=== PATIENT | female | born 1940 | race Caucasian/White ===

== ENCOUNTER → 2020-05-27 14:53 | Outpatient (BNVA) | payer MEDICARE, MEDICAID, SELFPAY | PROVIDERS: Family Provider Physician Assistant Medical; PCP Physician Assistant Medical; Visit Provider Surgery | DX: Z11.59 Encounter for screening for other viral diseases (principal) | CPT/HCPCS: 87635 ==

== ENCOUNTER 2020-06-01 09:08 | Day surgery (SDC) | payer MEDICARE, MEDICAID, SELFPAY ==
[2020-05-29 13:45] VITALS: BMI 24.5
[2020-06-01] VITALS (8 sets, daily range): BP systolic 143–158; BP diastolic 67–78; PULSE 65–77; RESP 18–25; TEMP 36.3–36.8; O2SAT 96–100
[2020-06-01 10:05] LABS: Glucose Point of Care 267 mg/dL (70-110)
[2020-06-01] MEDS: sodium chloride 0.9% 1,000 ML 30 ML IV (10:09)
--- NOTE | 2020-06-01 10:11 | W.PM.OPSUD ---
Surgery/Procedure H&P Update DATE OF PROCEDURE: June 01, 2020 DATE H&P PERFORMED: 05/25/20 H&P UPDATE INFORMATION: I have reviewed H&P completed within last 30 days, I have examined patient prior to procedure and No changes to prior documentation PREOP DIAGNOSIS: gerd/ cholelithiasis PLANNED PROCEDURE: Operation Date: 06/01/20 11:20 Proposed Procedures p EGD [id number] K80.20(Not Applicable) - Kris Crowe MD s Laparoscopic possible open Cholecystectomy(Not Applicable) - Kris Crowe MD
--- NOTE | 2020-06-01 10:37 | ANES.PREANE2 ---
Pre-Anesthetic Assessment Pre-Anesthetic Assessment: Height/Weight: Height 1.57 m Weight 60.781 kg Temp Pulse Resp BP Pulse Ox 98.2 F 77 18 150/77 96 06/01/20 09:51 06/01/20 09:51 06/01/20 09:51 06/01/20 09:51 06/01/20 09:51 Preop Diagnosis: gerd/ cholelithiasis Proposed Procedure: Operation Date: 06/01/20 11:20 Proposed Procedures p EGD 22094 [id number] K80.20(Not Applicable) - Kris Crowe MD s Laparoscopic possible open Cholecystectomy(Not Applicable) - Kris Crowe MD Last intake: Intake Last Liquid Date 05/31/20 Last Liquid Time 21:00 Last Solid Date 05/31/20 Last Solid Time 21:00 Social: Social History: No alcohol and No tobacco Exam: Pre-Anes Outpt Exam: alert, oriented x 3, clear to auscultation bilaterally and regular rate & rhythm Airway: Submandibular: WNL Cervical ROM: WNL MP: 1 Dentition: False History/ROS: No significant complaints Pulmonary: Pulmonary: None reported CV/HEM: CV/HEM: Arrythmia : : None reported Hepatic: Hepatic: None reported GI: GI: GERD Metabolic: Metabolic: DM [facility] [place]/skel: [facility]/skel: None reported Neuropsych: Neuropsych: None reported Anesthetic Plan: ASA status: 3 Anesthesia: General Meds/Allergies Current Medications: Current Medications Generic Name Dose Route Start Last Admin Trade Name Freq PRN Reason Stop Dose Admin Sodium Chloride 1,000 mls @ 30 ml s/hr 06/01/20 10:15 06/01/20 10:09 Sodium Chloride 0.9% IV 06/02/20 10:14 30 mls/hr .Q24H SATHISH Administration PFSH Anesthesia PFSH: Medical History (Updated 05/25/20 @ 16:51 by Kris Crowe MD) Atrial fibrillation Depression Diabetes GERD (gastroesophageal reflux disease) Hyperlipidemia Hypertension Hypokalemia Iron deficiency anemia Stress incontinence Surgical History H/O colonoscopy 2019 H/O oophorectomy bilateral 2019 History of cataract surgery Family History Father CAD (coronary artery disease) Cancer lung Mother CAD (coronary artery disease) Diabetes Denies family history of Anesthesia complication Bleeding disorder Social History Smoking and tobacco status: never smoked Alcohol intake: never Lives independently: Yes Marital status: Single Current occupational status: retired History of recent travel: No Data Anesthesia Other Labs: Laboratory Results - last 48 hr 06/01/20 10:02 POC Glucose 267 Cardiac Studies: No Data to Display
--- NOTE | 2020-06-01 10:45 | ECG_ITS ---
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 Measurements Intervals [place] Rate: 62 P: 64 AL: 143 QRS: -6 QRSD: 89 T: 24 QT: 433 QTc: 441 Interpretive Statements SINUS RHYTHM Compared to ECG 12/03/2018 10:55:24 Sinus arrhythmia no longer present Electronically Signed On 06-01-2020 18:54:14 COOK MANAGER by Monae Tomlin M.D. [id number]
--- NOTE | 2020-06-01 13:01 | SUR.PHASEI ---
1259 PATIENT TO PACU FROM OR. DENIES PAIN. 3 INCISIONS TO ABDOMEN, CDI.
--- NOTE | 2020-06-01 13:21 | SUR.PHASEI ---
1317 PATIENT TO OPS. DENIES PAIN. TOLERATING ICE CHIPS.
--- NOTE | 2020-06-01 14:43 | PM.OP ---
Operative Report Date of procedure: June 01, 2020 Pre-op Diagnosis: gerd/ cholelithiasis Post-op Diagnosis: Normal EGD Cholelithiasis Procedure Done: Esophagogastroduodenoscopy without biopsy Laparoscopic cholecystectomy Specimens removed/disposition: Gallbladder Surgeon: Kris Crowe Anesthesia: General Condition: stable Disposition: PACU Procedure: The patient was taken to the operating room and was intubated under general anesthesia. A bite-block was placed and a gastroscope was introduced and advanced up to the second portion of the duodenum and slowly withdrawn. There was no abnormalities in the first and second portion of the duodenum.. The pylorus, antrum, fundus and body of the stomach was normal. There is no hiatal hernia seen on retroflexion. Z-line at 40 cm. There were no other distal esophageal changes. The rest of the esophagus was normal. After the antibiotic had been administered, the abdomen was prepped and draped in a sterile manner. Using a #15 blade, a 1 centimeter infraumbilical curvilinear incision was made and using an open Christina technique the peritoneal cavity was entered. A 10 millimeter port was placed and 15 millimeters of pneumoperitoneum was created. A 10 millimeter, 30 degrees scope was then introduced. Three 5 millimeter ports were placed in the epigastric, midclavicular and the anterior axillary line two fingerbreadths below the costal margin on the right side under the direct visualization. Ratcheted forceps were introduced into the lateral most port and was used to retract the fundus of the gallbladder cephalad and using forceps the infundibulum of the gallbladder was retracted laterally. Using L-hook cautery the peritoneum overlying the Calot's triangle was opened medially and laterally until the cystic duct and the cystic artery were skeletonized. Dissection was carried along the body of the gallbladder and after ensuring critical view of safety, 4 clips applied on the cystic duct and 3 clips applied on the cystic artery and cut leaving, 3 clips on the remaining portion of the duct and 2 clips on the remaining portion of the artery. There was a tear in the fundus of the gallbladder where it was retracted with spillage of bile which was irrigated and suctioned out. There was no spillage of stones. The rest of the gallbladder was dissected off the liver using L-hook cautery. There was no bleeding or bile leaking noted from the gallbladder fossa and the clips appeared to be in place. An EndoCatch bag was introduced to remove the gallbladder. All the ports were removed under direct visualization and there was no bleeding noted from the port sites. The fascia of the umbilicus was closed using [id number] 0 Vicryl sutures and the subcutaneous tissue was approximated using 3-0 Vicryl sutures. The skin at all four ports were closed using 4-0 Monocryl and surgical glue. A total of 10 millimeters of 0.5% Marcaine was infiltrated around the port sites. The patient was stable throughout the procedure.
--- NOTE | 2020-06-01 15:09 | ANE.PACU2 ---
Inpatient post-anesthesia follow up: Airway intact: Yes Vital signs: Temperature 98.1 F Pulse Rate 65 Respiratory Rate 18 Blood Pressure 150/70 Pulse Oximetry 97 Oxygen Delivery Me thod Room Air Oxygen Flow Rate 8 Fraction of Inspir ed Oxygen Hydration adequate: Yes Nausea and vomiting: No Pain level: 3 Mental status: Baseline
== END 2020-06-01 13:45 | disposition home or self-care (01) ==
PROVIDERS: PCP Physician Assistant Medical; Visit Provider Surgery
PROC: 0FT44ZZ Resection of Gallbladder, Percutaneous Endoscopic Approach (ICD-10-PCS; CPT 47562; principal; 2020-06-01 11:20)
PROC: 0DJ08ZZ Inspection of Upper Intestinal Tract, Via Natural or Artificial Opening Endoscopic (ICD-10-PCS; CPT 43235; 2020-06-01 11:20)
DX: K80.10 Calculus of gallbladder with chronic cholecystitis without obstruction (principal); K21.9 Gastro-esophageal reflux disease without esophagitis; E11.9 Type 2 diabetes mellitus without complications; E78.5 Hyperlipidemia, unspecified; I10 Essential (primary) hypertension; I48.91 Unspecified atrial fibrillation
CPT/HCPCS: 43235; 47562; 12345; 36416; 82962; 88304; 93005; J0690; J2405; J2704; J2710; J3010; J3490; J7030

== ENCOUNTER → 2022-05-17 16:16 | Outpatient (BNVA) | payer MEDICARE, MEDICAID, SELFPAY | PROVIDERS: Absent Provider Registered Nurse; PCP Family Medicine; Visit Provider Internal Medicine Cardiovascular Disease | DX: R53.1 Weakness (principal); R06.02 Shortness of breath; Z79.01 Long term (current) use of anticoagulants; N18.9 Chronic kidney disease, unspecified; I48.20 Chronic atrial fibrillation, unspecified; I10 Essential (primary) hypertension | CPT/HCPCS: 80053; 83880; 84443; 85025; 85610; 99214; 99215 ==

== ENCOUNTER → 2022-05-27 08:19 | Outpatient (BNVA) | payer MEDICARE, MEDICAID, SELFPAY | PROVIDERS: PCP Family Medicine; Visit Provider Internal Medicine Cardiovascular Disease | DX: I10 Essential (primary) hypertension (principal); I48.20 Chronic atrial fibrillation, unspecified; R06.02 Shortness of breath; R53.83 Other fatigue | CPT/HCPCS: 80048; 83880 ==

== ENCOUNTER 2022-06-15 10:56 | Outpatient (CLI) | payer MEDICARE, MEDICAID, SELFPAY ==
--- NOTE | 2022-06-15 11:00 | USCV_ITS ---
Monalisa Moore Age: 82 Gender: F : 1940 Exam Date: 06/15/2022 11:49 Ordering Phys: Carlos Schuster MD ([email or web address]) Technologist: Exam Location: [facility] [place] Indication: chest pain BP: 130 / 72 HR: 49 Rhythm: Sinus Technical Quality: Adequate MEASUREMENTS (Male / Female) Normal Values 2D ECHO LV Diastolic Diameter PLAX 4.2 cm 4.2 - 5.9 / 3.9 - 5.3 cm LV Systolic Diameter PLAX 3.1 cm IVS Diastolic Thickness 1.0 cm 0.6 - 1.0 / 0.6 - 0.9 cm IVS Systolic Thickness 1.3 cm LVPW Diastolic Thickness 1.2 cm 0.6 - 1.0 / 0.6 - 0.9 cm LVPW Systolic Thickness 1.3 cm LVOT Diameter 2.0 cm LV Ejection Fraction 2D Teich 50.3 % LV Ejection Fraction MOD 2C 72.1 % LV Ejection Fraction 2C AL 72.2 % LA Diameter 3.3 cm Aorta at Sinotubular Diameter 2.2 cm IVC Diameter 1.6 cm M-MODE Aortic Annulus Diameter 2.5 cm LA Ao Ratio MM 1.4 MV E Point Septal Separation 1.0 cm DOPPLER AV Peak Velocity 123.0 cm/s LVOT Peak Velocity 101.0 cm/s AV Area Cont Eq vti 2.7 cm squared AV Area Cont Eq pk 2.7 cm squared MV Area PHT 5.0 cm squared Mitral E to A Ratio 3.5 MV E' Velocity 53.0 cm/s Mitral E to MV E' Ratio 11.2 Mitral E to LV E' Lateral Ratio 12.3 Mitral E to LV E' Septal Ratio 10.2 TR Peak Velocity 175.0 cm/s TR Peak Gradient 12.3 mmHg TV Peak E Velocity 78.0 cm/s Right Atrial Pressure 3.0 mmHg Pulmonary Artery Systolic Pressu 15.3 mmHg RV Acceleration Time 0.1 s FINDINGS Left Ventricle Normal left ventricular size and systolic function, EF 67 %. No regional wall motion abnormalities. Grade II/IV diastolic dysfunction, moderately elevated filling pressures. Right Ventricle The right ventricle is normal in size and function. Right Atrium The right atrium is normal in size. Left Atrium Mildly increased left atrial size. Mitral Valve Thickened mitral valve. Mild mitral annular calcification. Aortic Valve No gross abnormalities noted Tricuspid Valve Tricuspid valve not well visualized. Trace tricuspid valve regurgitation. Pulmonic Valve Pulmonic valve not well visualized. Pericardium No pericardial effusion. Aorta Normal ascending aorta dimension. IVC Normal inferior vena cava. CONCLUSIONS Normal left ventricular size and systolic function, EF 67 %. No regional wall motion abnormalities. Grade II/IV diastolic dysfunction, moderately elevated filling pressures. Mildly increased left atrial size. Thickened mitral valve. Mild mitral annular calcification. The tricuspid and pulmonic valves could not be visualized well Estimated pulmonary artery peak systolic pressure possibly within normal limits There is no pericardial effusion. Technically difficult study because of the poor ultrasonic window. Dr Carlos Schuster MD FACC (Electronically Signed) Final Date: 16 June 2022 08:38 S
== END 2022-06-15 10:57 | disposition home or self-care (01) ==
LOC: RAD 11:02
PROVIDERS: PCP Family Medicine; Visit Provider Internal Medicine Cardiovascular Disease
DX: R06.02 Shortness of breath (principal); R06.09 Other forms of dyspnea; I51.7 Cardiomegaly
CPT/HCPCS: 93306

== ENCOUNTER → 2022-06-27 08:53 | Outpatient (BNVA) | payer MEDICARE, MEDICAID, SELFPAY | PROVIDERS: PCP Family Medicine; Visit Provider Internal Medicine Cardiovascular Disease | DX: I10 Essential (primary) hypertension (principal); I48.20 Chronic atrial fibrillation, unspecified; R06.02 Shortness of breath; R53.83 Other fatigue | CPT/HCPCS: 80048; 83880 ==

== ENCOUNTER 2022-08-12 07:04 | Outpatient (CLI) | payer MEDICARE, MEDICAID, SELFPAY ==
--- NOTE | 2022-08-12 | ECG_ITS ---
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 Interpretive Statements NAME OF STUDY: LEXISCAN SESTAMIBI STRESS TEST INDICATION: [dyspnea, ] Procedure: At the baseline, the blood pressure was 120/79 mmHg with a heart rate of 57 bpm. The electrocardiogram showed normal sinus rhythm, normal axis with normal ST and T's. The Lexiscan was infused over a period of 20 seconds. A total of 0.4 mg of Lexiscan was infused. The stress phase was continued for a total of 5 minutes. Heart rate was at the end of stress phase was 68 bpm and a blood pressure of 164/79 mmHg. The EKG at the peak infusion revealed normal sinus rhythm with no significant ST-T wave changes. Sestamibi was injected 20 seconds after the Lexiscan infusion. Blood pressure at the end of recovery phase was 135/76 mmHg with a heart rate of 67 bpm. Conclusion: 1. Normal EKG response to Lexiscan infusion 2. No Lexiscan induced chest pain or cardiac arrhythmia. 3. Normal blood pressure and heart rate response. 4. Sestamibi/sestamibi perfusion scan pending; see separate report. Electronically Signed On 08-21-2022 20:18:04 CRANE SERVICE TECHNICIAN by Vlad García M.D. [id number]
[2022-08-12 07:40] VITALS: BMI 27.4
--- NOTE | 2022-08-12 07:51 | NMCV_ITS ---
NM levi perf SPECT r/s* [id number] Monalisa Moore Age: 82 Gender: F : 1940 Exam Date: 08/12/2022 08:57 Ordering Phys: Carlos Schuster MD ([email or web address]) Technologist: SHADY Osei Exam Location: [facility] Indications: CHRONIC A FIB STRESS TEST Please see separate stress test report in [facility] for full findings IMAGE PROTOCOL Rest/Stress 1 Lexiscan Day Radiopharmaceutical Dose (mCi) Administration Site Administered by Rest: Tc-99m 10.7 IV SHADY Osei Sestamibi Stress:Tc-99m 32.5 IV SHADY Warner Sestamibi Rest: 12-Aug-2022 60 Discovery 630 Stress: 12-Aug-2022 30 Discovery 630 0.4mg Lexiscan. Images obtained in supine and prone position. SPECT RESULTS Technical Quality: Excellent Raw Data Analysis: Normal Image Corrections: No attenuation or motion correction applied Summed Stress Score: 0 Summed Rest Score: 0 Summed Difference Score: 0 PERFUSION FINDINGS SPECT images demonstrate homogeneous tracer distribution throughout the myocardium. FUNCTIONAL RESULTS (calculated via Gated SPECT) Stress Image LV EF (%): 98 Stress EDV (mL):58 TID: 0.77 Stress ESV (mL):1 FUNCTIONAL FINDINGS: There is normal left ventricular systolic function. IMPRESSIONS 1. Normal myocardial perfusion imaging with no evidence of ischemia 2. LV systolic function is normal. Vlad García MD (Electronically Signed) Final Date: 12 August 2022 13:30 S
[2022-08-12] MEDS: regadenoson 0.4 Mg/5 ml Syringe IVP (09:53)
[2022-08-12 10:12] VITALS: BP 135/76; PULSE 65
== END 2022-08-12 07:05 | disposition home or self-care (01) ==
LOC: CDL 07:07
PROVIDERS: PCP Family Medicine; Visit Provider Internal Medicine Cardiovascular Disease
DX: R06.02 Shortness of breath (principal); R53.83 Other fatigue; I48.91 Unspecified atrial fibrillation
CPT/HCPCS: 36415; 78452; 93017; 96374; A9500; J2785

== ENCOUNTER → 2022-09-14 14:47 | Outpatient (BNVA) | payer MEDICARE, MEDICAID, SELFPAY | PROVIDERS: PCP Family Medicine; Visit Provider Internal Medicine Cardiovascular Disease | DX: I48.20 Chronic atrial fibrillation, unspecified (principal); Z79.01 Long term (current) use of anticoagulants; E78.5 Hyperlipidemia, unspecified; I11.0 Hypertensive heart disease with heart failure; I50.30 Unspecified diastolic (congestive) heart failure | CPT/HCPCS: 99214 ==

== ENCOUNTER 2023-01-04 11:49 | Outpatient (CLI) | payer MEDICARE, MEDICAID, SELFPAY ==
--- NOTE | 2023-01-04 11:54 | USCV_ITS ---
Monalisa Moore Age: 82 Gender: F : 1940 Exam Date: 01/04/2023 12:40 Ordering Phys: Zonia Li Technologist: [place] Exam Location: [facility] [place] Indication: BLE SWELLING BP: 126 / 72 HR: 55 Rhythm: Sinus Technical Quality: Adequate MEASUREMENTS (Male / Female) Normal Values 2D ECHO LVOT Diameter 2.0 cm LV Ejection Fraction MOD 2C 73.0 % LV Ejection Fraction 2C AL 73.6 % LA Diameter 3.8 cm LA Width 4.2 cm LA Height 5.0 cm RA Width 3.3 cm RA Height 4.1 cm Aorta at Sinotubular Diameter 1.7 cm IVC Diameter 1.9 cm M-MODE Aortic Annulus Diameter 2.7 cm LA Ao Ratio MM 1.3 MV E Point Septal Separation 0.5 cm DOPPLER AV Peak Velocity 151.0 cm/s LVOT Peak Velocity 114.0 cm/s AV Area Cont Eq vti 2.2 cm squared AV Area Cont Eq pk 2.4 cm squared MV Peak Velocity 113.0 cm/s MV Area PHT 3.6 cm squared Mitral E to A Ratio 1.1 MV E' Velocity 60.0 cm/s Mitral E to MV E' Ratio 14.4 Mitral E to LV E' Lateral Ratio 14.4 Mitral E to LV E' Septal Ratio 14.4 TR Peak Velocity 258.6 cm/s TR Peak Gradient 26.8 mmHg TR Mean Velocity 189.2 cm/s TR Mean Gradient 15.3 mmHg TR Velocity Time Integral 80.4 cm TV Peak E Velocity 49.0 cm/s Right Atrial Pressure 3.0 mmHg Pulmonary Artery Systolic Pressu 29.7 mmHg PV Peak Velocity 81.0 cm/s RV Acceleration Time 0.2 s RV Ejection Time 0.4 s RV AcT/ET 0.5 FINDINGS Left Ventricle Normal left ventricular size, systolic function and wall thickness, with no regional wall motion abnormalities. Left ventricular ejection fraction is estimated at 65 %. Grade II diastolic dysfunction, moderately elevated filling pressures. Right Ventricle Normal right ventricular size and systolic function. Right ventricular systolic pressure 29.7 mmHg. Right Atrium Normal right atrial size. Left Atrium Moderately increased left atrial size. Mitral Valve Mild mitral annular calcification. Mildly thickened mitral valve. No mitral valve stenosis. Aortic Valve Mildly thickened trileaflet aortic valve. No aortic valve stenosis. No aortic valve regurgitation. Tricuspid Valve Structurally normal tricuspid valve. No tricuspid valve stenosis. Trace tricuspid valve regurgitation. Pulmonic Valve Pulmonic valve not well visualized. No pulmonary valve stenosis. No pulmonary valve regurgitation. Pericardium No pericardial effusion. Aorta Normal size aortic root and proximal ascending aorta. IVC Normal IVC dimension with >50% respiratory change of the inferior vena cava. CONCLUSIONS 1. Normal left ventricular size, systolic function and wall thickness, with no regional wall motion abnormalities. Left ventricular ejection fraction is estimated at 65 %. Grade II diastolic dysfunction, moderately elevated filling pressures. 2. When compared to study dated 06/15/2022, there has been no significant change. Monae Tomlin MD (Electronically Signed) Final Date: 10 January 2023 23:17 S
== END 2023-01-04 11:50 | disposition home or self-care (01) ==
LOC: RAD 11:50
PROVIDERS: PCP Registered Nurse; Visit Provider Nurse Practitioner Family
DX: N18.31 Chronic kidney disease, stage 3a (principal); I48.19 Other persistent atrial fibrillation
CPT/HCPCS: 93306

== ENCOUNTER → 2023-03-22 13:32 | Outpatient (BNVA) | payer MEDICARE, MEDICAID, SELFPAY | PROVIDERS: PCP Registered Nurse; Visit Provider Internal Medicine Cardiovascular Disease | DX: I11.0 Hypertensive heart disease with heart failure (principal); I50.32 Chronic diastolic (congestive) heart failure; E78.5 Hyperlipidemia, unspecified; I48.20 Chronic atrial fibrillation, unspecified; Z79.01 Long term (current) use of anticoagulants; R53.83 Other fatigue; N18.9 Chronic kidney disease, unspecified; I25.10 Atherosclerotic heart disease of native coronary artery without angina pectoris; R06.02 Shortness of breath | CPT/HCPCS: 36415; 80048; 83880; 84443; 85025; 99214 ==

== ENCOUNTER 2023-04-03 12:24 | Inpatient (IN) | payer MEDICARE, MEDICAID, SELFPAY ==
[2023-04-03] VITALS (8 sets, daily range): BP systolic 150–178; BP diastolic 73–81; PULSE 89–112; RESP 16–33; TEMP 37.3; O2SAT 91–97; BMI 28.0
--- NOTE | 2023-04-03 13:04 | W.ED.WEAKNES ---
HPI - Weakness General: Chief complaint: Weakness Stated complaint: FALL Time Seen by Provider: 04/03/23 12:29 History of Present Illness: This 82-year-old female was brought in by EMS for evaluation of fall that occurred this morning. Patient's friend who was by patient's bedside noted that she went to patient's house this morning and found her laying on the floor. Patient states that she rolled out of bed and could not get up. She struck her left elbow and complains of pain in that elbow. However, on further evaluation, I noticed that patient could not look to her left. She had an obvious left hemineglect. Last known well was 11 PM last night when patient's friend stated that she called patient on the phone. At that time, patient was on her computer playing a game. Patient tells me that she was on the floor for about an hour before her friend found her. Patient does not fully cooperate with exam due to her mental state so it is hard to do a comprehensive exam. Associated symptoms: Denies chest pain, chills, dysuria, headache(s) or vomiting Review of Systems Narrative: Difficult to do a comprehensive neuro exam because patient is not very cooperative. Const: Denies: chills, body aches or change in appetite Eyes: Reports: other (Difficulty with lateral gaze to the left.) ENMT: Denies: throat pain, dental pain or nasal discharge Card: Denies: chest pain or lightheadedness GI: Denies: abdominal pain or vomiting : Denies: dysuria Musc: Reports: joint pain (left elbow pain); Denies: neck pain or back pain Neuro: Denies: headache(s) or weakness in extremities PFS ED PFSH: Medical History Atrial fibrillation Chest pain Depression Diabetes Dyspnea GERD (gastroesophageal reflux disease) Hyperlipidemia Hypertension Hypokalemia Iron deficiency anemia Stress incontinence Surgical History H/O colonoscopy 2019 H/O oophorectomy bilateral 2019 History of cataract surgery Status post laparoscopic cholecystectomy Family History Father CAD (coronary artery disease) Cancer lung Hypertension Lung disease Mother CAD (coronary artery disease) [place] @ 66/ Diabetes Hypertension Denies family history of Clotting disorder Dementia Chronic kidney disease (CKD) Suicide Anesthesia complication Bleeding disorder Stroke Social History Smoking and tobacco status: never smoked Alcohol intake: never Substance/Drug Use: never Lives independently: Yes Marital status: Single Current occupational status: retired Physical Exam Const: COMMON NORMALS: no acute distress, patient oriented x3 and alert OTHER: Difficult to perform a comprehensive neuro exam because she is not following commands consistently. HENMT: COMMON NORMALS: normocephalic HEAD & SCALP: normocephalic Eye: OTHER: Difficulty with left lateral gaze. Unable to participate fully with visual field testing. Neck/C-Spine: COMMON NORMALS: full ROM and supple Chest: COMMONS NORMALS: normal inspection of the chest Resp: COMMON NORMALS: normal respiratory effort, No retractions, No use of accessory muscles and clear to auscultation bilaterally AUSCULTATION: clear to auscultation bilaterally Cardio: COMMON NORMALS: regular rate, regular rhythm and No murmurs present (Cardio) RATE: regular rate RHYTHM: regular rhythm GI: COMMON NORMALS: Normal to inspection, nondistended, normoactive bowel sounds present and non-tender : COMMON NORMALS: Yes no CVA tenderness BLADDER/KIDNEY EXAM: Yes no CVA tenderness Back/Pelvis: COMMON NORMALS: no CVA tenderness and no thoracic nor lumbar tenderness Extremity: GENERAL: Yes normal exam except as noted Neuro: COMMON NORMALS: patient oriented x3 SENSORIUM/ORIENTATION: Yes alert MOTOR EXAM: Other motor observations present (Strength is 3 in the left upper and left lower extremities.) OTHER: There is obvious left hemineglect. Psych: COMMON NORMALS: mental status grossly normal Course Reevaluation(s): Reevaluation #1: Still waiting for CTA head and neck result. Time: 18:16 Consultations: Consultation #1: Patient was evaluated by Dr. Grove, neurologist on-call. He agrees that patient has a CVA but she is well outside the window for tPA. However, since her last known well is within 24 hours, we need to get a CTA head and neck and if there is a high grade occlusion, she needs to be transferred to a tertiary center for possible thrombectomy. If on the other hand the CTA head and neck shows no high-grade stenosis, she will be admitted in this facility under the hospitalist. CTA head and neck ordered Consultation #2: Dr. Jha from radiology called noting that there is occlusion of one of the branches of the M2 segment of the right middle cerebral artery. Given that she is within 24 hours of last known well, she will be transferred to a tertiary center. Time: 19:20 Consultation #3: Case discussed with Dr. Kelley with the stroke team at [facility]. He will review patient's images and call us back. Time: 19:48 Additional Consultation(s): 2014 hrs., Dr. Kelley called back after reviewing patient's images. He noted that the noncontrast CT head done earlier showed that the area of infarct was completed. He noted that patient was well outside the window for tPA and added that thrombectomy would not help her at the time. The CTA head and neck shows no further tissue damage beyond the affected area on the CT head. He notes that reperfusion would not be helpful to patient and may actually be harmful. So he recommends that patient is not a candidate for transfer for reperfusion. She notes that patient can be admitted locally for management. Vital Signs: Vital signs: Vital Signs Temperature 99.2 F 04/03/23 12:28 Pulse Rate 107 H 04/03/23 20:57 Respiratory Rate 30 H 04/03/23 20:57 Blood Pressure 150/79 04/03/23 20:57 Pulse Oximetry 97 04/03/23 20:57 Oxygen Delivery Me thod Room Air 04/03/23 20:57 Oxygen Flow Rate 5 04/03/23 17:04 MDM - Weakness Medical Decision Making Medical decision making: Patient was found on the floor by a friend who called EMS to bring her in for evaluation. Friend notes that she spoke with patient around 11:00 last night at which time patient sounded okay on the phone. Patient was found to have significant left hemineglect. She also has weakness involving the left side of the body. NIH stroke scale at that time was 13. CT brain revealed a focal area of decreased attenuation in the right frontal temporal lobe. She was evaluated by neurologist on-call, Dr. Grove who recommended getting a CTA head and neck to determine if patient has occlusion that would benefit from thrombectomy. Patient should be transferred if she has critical stenosis that would benefit from intervention. Otherwise, she should be admitted here for further care. CTA head and neck obtained. There was considerable delay in getting the results back. It showed occlusion of one of the M2 branches of the right middle cerebral artery. This was discussed with the stroke team at [facility]. They noted that patient is outside the window for tPA or thrombectomy. As a result, no emergent intervention is needed at this time. Standard stroke care should be provided and patient can be admitted in this facility. Case discussed with Dr. Guy, hospitalist on-call. She accepted patient for admission. Made Dr. Grove aware that patient is getting admitted to this hospital. Lab Data 04/03/23 13:32 04/03/23 13:32 Radiology Impressions Head/Neck CTA 04/03/23 14:42 IMPRESSION: There is occlusion of one of the M2 branches of the right MCA. IMPRESSION: 1. 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 2. Mild stenosis at the carotid bulbs and origins of the internal carotid arteries. No severe stenosis or occlusion. 3. Ground-glass pulmonary micro nodules noted in both lung apices suggestive of a small airway infectious or inflammatory process. REFERENCES: NASCET CRITERIA. The degree of stenosis in the cervical segment of the internal carotid artery is based on NASCET criteria. Normal is no stenosis. Mild is less than 50% stenosis. Moderate is 50-69% stenosis. Severe is 70% to 99% stenosis. Total occlusion is no detectable patent lumen. ADDENDUM: 04/03/231914 THIS REPORT CONTAINS FINDINGS THAT MAY BE CRITICAL TO PATIENT CARE. The findings were verbally communicated via telephone conference with JOEL MENDOSA at 7:14 PM CDT on 04/03/2023. The findings were acknowledged and understood. Laboratory Results WBC 15.05 10^3/uL (3.29-11.43) H 04/03/23 13:32 RBC 4.70 10^6/uL (3.85-5.65) 04/03/23 13:32 Hgb 14.40 g/dL (11.27-16.99) 04/03/23 13:32 Hct 44.2 % (36-47) 04/03/23 13:32 MCV 94.0 fl (85-98) 04/03/23 13:32 MCH 30.6 pg (27-33) 04/03/23 13:32 MCHC 32.6 g/dL (30-55) 04/03/23 13:32 RDW 12.9 % (12.1-15.1) 04/03/23 13:32 Plt Count 222 10^3/cmm (157-399) 04/03/23 13:32 MPV 11.9 fL (7.4-10.4) H 04/03/23 13:32 Neut % (Auto) 92.1 % 04/03/23 13:32 Lymph % (Auto) 3.8 % 04/03/23 13:32 Pershing % (Auto) 3.2 % 04/03/23 13:32 Eos % (Auto) 0.0 % 04/03/23 13:32 Baso % (Auto) 0.2 % 04/03/23 13:32 Neut # (Auto) 13.86 10^3/uL (1.8-7.7) H 04/03/23 13:32 Lymph # (Auto) 0.6 10^3/uL (0.8-4.8) L 04/03/23 13:32 Pershing # (Auto) 0.5 10^3/uL (0.2-0.9) 04/03/23 13:32 Eos # (Auto) 0.0 10^3/uL (0.0-0.8) 04/03/23 13:32 Baso # (Auto) 0.0 10^3/uL (0.0-0.1) 04/03/23 13:32 Nucleated RBC % (auto) 0 % 04/03/23 13:32 Nucleated RBCs # 0.0 /100WBC 04/03/23 13:32 PT 14.40 SECONDS (12.1-14.9) 04/03/23 13:32 INR 1.08 (0.8-1.2) 04/03/23 13:32 Sodium 135 mmol/L (136-145) L 04/03/23 13:32 Potassium 4.8 mmol/L (3.5-5.1) 04/03/23 13:32 Chloride 99 mmol/L (98-107) 04/03/23 13:32 Carbon Dioxide 15 mmol/L (22-29) L 04/03/23 13:32 Anion Gap 25.8 (5-19) H 04/03/23 13:32 BUN 22 mg/dL (8-23) 04/03/23 13:32 Creatinine 1.1 mg/dL (0.5-0.9) H 04/03/23 13:32 GFR Calculation Not Reportable 04/03/23 13:32 Glucose 224 mg/dL (65-115) H 04/03/23 13:32 Calculated Osmolality 290 mOsm/kg (285-295) 04/03/23 13:32 Calcium 9.1 mg/dL (8.5-10.5) 04/03/23 13:32 Total Bilirubin 0.9 mg/dL (0.15-1.2) 04/03/23 13:32 AST 27 U/L (0-32) 04/03/23 13:32 ALT 19 U/L (0-33) 04/03/23 13:32 Alkaline Phosphatase 89 U/L (35-105) 04/03/23 13:32 Total Protein 7.3 g/dL (6.6-8.7) 04/03/23 13:32 Albumin 4.4 g/dL (3.5-5.2) 04/03/23 13:32 Globulin 2.9 g/dL (1.3-4.6) 04/03/23 13:32 Urine Color Yellow (Yellow) 04/03/23 17:04 Urine Appearance Sl hazy (CLEAR) A 04/03/23 17:04 Urine pH 5 (5-7) 04/03/23 17:04 Ur Specific [place] 1.015 (1.005-1.030) 04/03/23 17:04 Urine Protein Neg (Negative) 04/03/23 17:04 Urine Glucose (UA) 4+ (Normal) H 04/03/23 17:04 Urine Ketones 2+ (Negative) H 04/03/23 17:04 Urine Blood Neg (Negative) 04/03/23 17:04 Urine Nitrate Negative (Negative) 04/03/23 17:04 Urine Bilirubin Neg (Negative) 04/03/23 17:04 Urine Urobilinogen Norm mg/dL (Negative) 04/03/23 17:04 Ur Leukocyte Esterase Negative (Negative) 04/03/23 17:04 Urine RBC None /hpf (0-2) 04/03/23 17:04 Urine WBC 0-4 /hpf (0-5) H 04/03/23 17:04 Ur Squamous Epith Cells None /hpf (0-5) 04/03/23 17:04 Amorphous Sediment Not Reportable 04/03/23 17:04 Urine Bacteria Trace /hpf (NONE) 04/03/23 17:04 Urine Yeast 3+ /hpf H 04/03/23 17:04 Discharge Plan Discharge Patient Disposition: Admitted As Inpatient Admit Provider: Darleen Guy Clinical Impression: Acute CVA (cerebrovascular accident) Condition: Stable Coding Level of Care Code ED [employer] Solution Manager for Asya Son
--- NOTE | 2023-04-03 13:15 | XR_ITS ---
WS: [id number] Exam: XR chest 1V portable [id number] Date/Time of Exam: 04/03/2023 1:15 PM Reason For Exam: weakness No priors. There appears to be infiltrate and/or atelectasis in the medial segment of the RIGHT middle lobe. Thi s may be acute or chronic. Mild plaque atelectasis in the LEFT base. The lungs are otherwise clear. N ormal cardiomediastinal silhouette. Bony structures are intact. IMPRESSION: 1. Infiltrate and/or atelectasis along the RIGHT heart border that may represent pneumonia or chronic change. LEFT lower lobe plaque atelectasis. 2. No other significant finding.
--- NOTE | 2023-04-03 13:15 | CT_ITS ---
WS: [id number] CT HEAD NONCONTRAST HISTORY: fall, left sided hemineglect TECHNIQUE: Contiguous axial imaging performed through the brain in 3.0 mm imaging. Bone and soft tiss ue windows. Sagittal and coronal reformats reviewed. All CT scans at [facility] use at least one of these dose optimization techniques: automated exposure control; mA and/or kV adjustment per pa tient size (includes targeted exams where dose is matched to clinical indication); or iterative recon struction. DLP: 1039.38 mGy.cm COMPARISON: None available. Focal area of decreased attenuation in the RIGHT frontal temporal lobe. There is extension into the a nterior insular ribbon. There is loss of the sulci and slight mass effect upon the adjacent brain. Th ere is a focal area of cortical involvement also. No midline shift or mass effect and no hemorrhage. Additional areas of moderate atrophy and small vessel ischemic disease. Ventricles: Normal. Paranasal sinuses: Prior maxillary sinus surgery. Mastoid air cells: Well pneumatized. Calvarium and scalp: Skull is intact with no soft tissue edema or swelling. IMPRESSION: 1. No acute intracranial hemorrhage or edema. 2. Low-attenuation region RIGHT frontotemporal location measures 2.5 x 2.7 cm. Favor acute to subacut e infarct. Differential includes acute/subacute infarct and underlying neoplasm. Recommend follow-up MRI brain with contrast. Notified America Britt MD at 04/03/2023 2:08 PM.
--- NOTE | 2023-04-03 13:15 | XR_ITS ---
WS: [id number] Exam: XR pelvis 1-2V* [id number] Date/Time of Exam: 04/03/2023 1:15 PM Reason For Exam: fall No pelvic fracture. The hips are intact. Soft tissues are unremarkable. IMPRESSION: 1. No acute pelvic fracture identified.
[2023-04-03 13:41] LABS: Basophils % 0.2 %; Hematocrit 44.2 % (36-47); Lymphocytes # 0.6 10^3/uL (0.8-4.8); Lymphocytes % 3.8 %; Mean Corpuscular HGB Conc 32.6 g/dL (30-55); Mean Corpuscular Hemoglobin 30.6 pg (27-33); Mean Platelet Volume 11.9 fL (7.4-10.4); Monocytes # 0.5 10^3/uL (0.2-0.9); Monocytes % 3.2 %; Neutrophils # 13.86 10^3/uL (1.8-7.7); Neutrophils % 92.1 %; Nucleated Red Blood Cells % 0 %; Platelet Count 222 10^3/cmm (157-399); Red Cell Distribution Width 12.9 % (12.1-15.1); White Blood Count 15.05 10^3/uL (3.29-11.43)
--- NOTE | 2023-04-03 13:56 | XR_ITS ---
WS: [id number] Exam: XR elbow LT 2V [id number] Date/Time of Exam: 04/03/2023 1:56 PM Reason For Exam: fall, left elbow pain No acute fracture or dislocation. No joint effusion is seen. There may be a soft tissue laceration al makenzie the olecranon process. IMPRESSION: 1. No bony injury identified. 2. There may be a soft tissue laceration along the olecranon process.
[2023-04-03 14:02] LABS: INR 1.08 (0.8-1.2)
[2023-04-03 14:05] LABS: Alanine Aminotransferase 19 U/L (0-33); Albumin Level 4.4 g/dL (3.5-5.2); Alkaline Phosphatase 89 U/L (35-105); Anion Gap 25.8 (5-19); Aspartate Amino Transferase 27 U/L (0-32); Blood Urea Nitrogen 22 mg/dL (8-23); Calcium 9.1 mg/dL (8.5-10.5); Carbon Dioxide 15 mmol/L (22-29); Chloride 99 mmol/L (98-107); Globulin 2.9 g/dL (1.3-4.6); Glucose 224 mg/dL (65-115); Osmolality Calculated 290 mOsm/kg (285-295); Potassium 4.8 mmol/L (3.5-5.1); Sodium 135 mmol/L (136-145); Total Bilirubin 0.9 mg/dL (0.15-1.2); Total Protein 7.3 g/dL (6.6-8.7)
--- NOTE | 2023-04-03 14:42 | CTR_ITS ---
PROCEDURE INFORMATION: Exam: CTA Head With Contrast, Arteriography Exam date and time: 04/03/2023 3:33 PM Age: 82 years old Clinical indication: Weakness; Additional info: Left sided deficit TECHNIQUE: Imaging protocol: Computed tomographic angiography of the head with contrast. Exam focused on the arteries. 3D rendering (Not supervised by radiologist): MIP and/or 3D reconstructed images were created by the technologist. Radiation optimization: All CT scans at this facility use at least one of these dose optimization techniques: automated exposure control; mA and/or kV adjustment per patient size (includes targeted exams where dose is matched to clinical indication); or iterative reconstruction. Contrast material: OMNI 350; Contrast volume: 100 ml; Contrast route: INTRAVENOUS (IV); REPORTING DATA: Count of CT and Cardiac NM exams in prior 12 months: This patient has received [address] and 0 known cardiac nuclear medicine studies in the 12 months prior to the current study. COMPARISON: CT head wo con* [id number] 04/03/2023 1:39 PM RADIATION DOSE METRICS: Total DLP (mGy-cm): 400.23 FINDINGS: ANTERIOR CIRCULATION: Right internal carotid artery: Intracranial segment is patent with no significant stenosis. No aneurysm. Right middle cerebral artery: There is occlusion of one of the branches of the M2 segment of the right MCA. Right anterior cerebral artery: No occlusion or significant stenosis. No aneurysm. Left internal carotid artery: Intracranial segment is patent with no significant stenosis. No aneurysm. Left middle cerebral artery: No occlusion or significant stenosis. No aneurysm. Left anterior cerebral artery: No occlusion or significant stenosis. No aneurysm. POSTERIOR CIRCULATION: Right vertebral artery: No occlusion or significant stenosis. No aneurysm. Left vertebral artery: No occlusion or significant stenosis. No aneurysm. Basilar artery: No occlusion or significant stenosis. No aneurysm. Right posterior cerebral artery: No occlusion or significant stenosis. No aneurysm. Left posterior cerebral artery: No occlusion or significant stenosis. No aneurysm. Brain: No definite mass, mass effect, or midline shift. Cerebral ventricles: No ventriculomegaly. Bones/joints: Unremarkable. No acute fracture. Soft tissues: Unremarkable. PROCEDURE INFORMATION: Exam: CTA Neck With Contrast Exam date and time: 04/03/2023 3:33 PM Age: 82 years old Clinical indication: Weakness; Additional info: Left sided deficit TECHNIQUE: Imaging protocol: Computed tomographic angiography of the neck with contrast. 3D rendering (Not supervised by radiologist): MIP and/or 3D reconstructed images were created by the technologist. Radiation optimization: All CT scans at this facility use at least one of these dose optimization techniques: automated exposure control; mA and/or kV adjustment per patient size (includes targeted exams where dose is matched to clinical indication); or iterative reconstruction. Contrast material: OMNI 350; Contrast volume: 100 ml; Contrast route: INTRAVENOUS (IV); REPORTING DATA: Count of CT and Cardiac NM exams in prior 12 months: This patient has received [address] and 0 known cardiac nuclear medicine studies in the 12 months prior to the current study. COMPARISON: CT head wo con* [id number] 04/03/2023 1:39 PM RADIATION DOSE METRICS: Total DLP (mGy-cm): 400.23 FINDINGS: Right common carotid artery: Mild stenosis at the carotid bulb. No dissection or occlusion. Right internal carotid artery: Mild stenosis at the origin. No dissection or occlusion. Right external carotid artery: No occlusion or stenosis of the origin. Left common carotid artery: Mild stenosis at the carotid bulb. No dissection or occlusion. Left internal carotid artery: Mild stenosis at the origin. No dissection or occlusion. Left external carotid artery: No occlusion or stenosis of the origin. Right vertebral artery: No stenosis. No dissection or occlusion. Left vertebral artery: There is a short segment of occlusion of the distal left vertebral artery with reconstitution prior to the formation of the basilar artery. Soft tissues: Normal. No significant soft tissue swelling. Bones/joints: No acute fracture. Lungs: Ground-glass pulmonary micro nodules noted at both lung apices. CT/CT angio headneck* [id number] IMPRESSION: There is occlusion of one of the M2 branches of the right MCA. IMPRESSION: 1. 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 2. Mild stenosis at the carotid bulbs and origins of the internal carotid arteries. No severe stenosis or occlusion. 3. Ground-glass pulmonary micro nodules noted in both lung apices suggestive of a small airway infectious or inflammatory process. REFERENCES: NASCET CRITERIA. The degree of stenosis in the cervical segment of the internal carotid artery is based on NASCET criteria. Normal is no stenosis. Mild is less than 50% stenosis. Moderate is 50-69% stenosis. Severe is 70% to 99% stenosis. Total occlusion is no detectable patent lumen.
--- NOTE | 2023-04-03 15:23 | PC.PHAR ---
pt and pts friend verified pts medications-pt and pts friend states the pt takes eliquis 5mg daily [facility] [place] states last filled 05/21/22 90d/s 5mg bid-pts friend states the pt takes pepcid 20mg bid prn ext shows last filled 05/29/22 90d/s 20mg bid-pts friend states the pt takes lasix 20mg daily prn [facility] last filled 05/18/22 90d/s-rx filled 03/30/23 90d/s oxybutynin er 15mg daily-ext also shows 5mg bid filled 12/22/22 90d/s [facility] states was increased on 01/03/23 to er 15mg daily-notes are made in the pharmacy comments
[2023-04-03] MEDS: iohexol 350 mg/mL 500 mL Btl (per mL) IV (15:43)
--- NOTE | 2023-04-03 16:57 | PM.CONSULT ---
Providers/Reason For Consult Consulting Physician/Specialty*: Alexandro Grove MD neurology and epilepsy Reason for Consult*: Critical care code stroke Primary Care Provider: Roseline Salazar History of Present Illness History of Present Illness Monalisa Moore is a 82 year old female with a history of type 2 diabetes mellitus, irregular heart rate and hypertension. According to the linseed oil press tender, she last spoke to the patient around 11 PM on 04/02/2023. On the morning of 04/03/2023 the linseed oil press tender stated that she found the patient down with paralysis of the left arm and left leg. The patient was brought to [facility] emergency room. The patient was well out of the 4-1/2-hour window. Therefore the patient was not a candidate for tPA. Noncontrast head CT scan was obtained and was reported to reveal decreased attenuation in the right frontal/temporal area extending into the insula with slight mass effect. Findings suggestive of subacute infarction. On clinical examination, the patient NIH score equals 12. Patient's examination revealed left lower facial weakness, paralysis of the left arm and left leg, neglect involving the left side of her body and right gaze preference. Coordination could not be assessed. I spoke with the ER physician who will order CT angiogram of the head and neck to assess for thrombus in the internal carotid artery in order to determine if the patient is a candidate for thrombectomy. Past medical history: Type 2 diabetes mellitus Hypertension hypertension Irregular heart rate addressed by cardiology Dr. Schuster Hyperlipidemia Chronic atrial fibrillation Gastroesophageal reflux disease Drug allergies: None Outpatient medications: Eliquis 5 mg p.o. daily Celexa 20 mg p.o. daily Farxiga 5 mg p.o. daily Colace 100 mg p.o. twice daily Pepcid 20 mg p.o. twice daily Lasix 20 mg p.o. daily, as needed Glyburide 5 mg p.o. daily Lisinopril 5 mg p.o. daily Lovastatin 40 mg p.o. daily Metoprolol 12.5 mg p.o. twice daily Oxybutynin 15 mg p.o. daily Habits: None History: Unknown Review of Systems General: Reports: 10 or more systems reviewed and unremarkable except in HPI and below Medications/Allergies Home Medications Medication Instructions Recorded Confirmed Last Taken Type citalopram 20 mg tablet (Celexa) 20 mg PO DAILY 05/21/20 04/03/2320 History lisinopril 5 mg tablet 5 mg PO DAILY 05/21/20 04/03/23 05/31/20 History lovastatin 40 mg tablet 40 mg PO DAILY 05/21/20 04/03/23 05/31/20 History famotidine 20 mg tablet 20 mg PO BID PRN unknown 05/17/22 04/03/23 Unknown History glyburide 5 mg tablet 5 mg PO DAILY 05/17/22 04/03/23 Unknown History apixaban 5 mg tablet (Eliquis) 5 mg PO DAILY 04/03/23 04/03/23 Unknown History dapagliflozin propanediol 5 mg 5 mg PO DAILY 04/03/23 04/03/23 Unknown History tablet (Farxiga) docusate sodium 100 mg capsule 100 mg PO BID PRN Constipation 04/03/23 04/03/23 Unknown History (Colace) furosemide 20 mg tablet 20 mg PO DAILY PRN Edema 04/03/23 04/03/23 Unknown History metoprolol tartrate 25 mg tablet 12.5 mg PO BID 04/03/23 04/03/23 Unknown History oxybutynin chloride 15 mg 15 mg PO DAILY 04/03/23 04/03/23 Unknown History tablet,extended release 24 hr Allergies Allergy/AdvReac Type Severity Reaction Status Date / Time No Known Allergies Allergy Verified 04/03/23 15:14 PFSH Acute PFSH: Medical History Atrial fibrillation Chest pain Depression Diabetes Dyspnea GERD (gastroesophageal reflux disease) Hyperlipidemia Hypertension Hypokalemia Iron deficiency anemia Stress incontinence Surgical History H/O colonoscopy 2019 H/O oophorectomy bilateral 2019 History of cataract surgery Status post laparoscopic cholecystectomy Family History Father CAD (coronary artery disease) Cancer lung Hypertension Lung disease Mother CAD (coronary artery disease) [place] @ 66/ Diabetes Hypertension Denies family history of Clotting disorder Dementia Chronic kidney disease (CKD) Suicide Anesthesia complication Bleeding disorder Stroke Social History Smoking and tobacco status: never smoked Alcohol intake: never Substance/Drug Use: never Lives independently: Yes Marital status: Single Current occupational status: retired Vitals/I&O/Wt Last Vital Signs Temp 99.2 F 04/03/23 12:28 Pulse 89 04/03/23 16:09 Resp 20 H 04/03/23 16:09 BP 159/78 04/03/23 16:09 Pulse Ox 94 04/03/23 16:09 O2 Del Method Oxymask 04/03/23 16:09 O2 Flow Rate 5 04/03/23 16:09 Weight last 48 hrs Weight 153 lb Physical Exam Narrative: NIH score = 12 The patient is alert and oriented to person place and situation. Patient answered questions correctly and was able to follow commands. Speech clear. Head atraumatic neck supple. Cranial nerves II through XII revealed right gaze preference and patient unable to look past the midline to the left. There was also left lower facial weakness. Pupils 3 to 4 mm and reactive to light. Motor testing 5/5 in the right arm and right leg and 0/5 in the left arm and left leg. Deep tendon reflexes 2+ bilaterally. Plantar responses flexor bilaterally. There was no clonus. Sensory examination intact to touch. There was extinction on double sensory stimulation with the patient neglecting her left side. Throat clear. Lungs clear. History of atrial fibrillation. Extremities were negative for clubbing or cyanosis Data 04/03/23 13:32 04/03/23 13:32 A&P Assessment and plan (1) Acute right MCA stroke: Impression: 1. Acute right MCA distribution stroke manifested as left-sided paralysis, left-sided neglect and left lower facial weakness. Note: The patient's last known well was 11 PM on 04/02/2023. Patient presented to the [facility] emergency room on 04/03/2023 outside of the tPA window of 4-1/2 hours. Also patient is on anticoagulation and therefore the patient was not a candidate for tPA and no tPA was administered. 2. Chronic atrial fibrillation 3. Hypertension 4. Type 2 diabetes mellitus Plan: 1. Recommend CT angiogram of the head and neck to assess for large vessel occlusion to determine if patient is a candidate for thrombectomy at another facility 2. Stroke work-up per NIH stroke protocol 3. Continue lovastatin 4. Refer to cardiology to determine if additional or alternative anticoagulation and/or antiplatelet is indicated if patient not a candidate for thrombectomy Consult Attestations Medical Necessity Statement: Patient evaluated for for critical care code stroke ER room #4 Critical Care Time: 30 minutes Coding Level of Care Code 72408 Diagnoses Acute right MCA stroke I63.511 Time Spent (min) 30
[2023-04-03 18:19] LABS: Specific Gravity, Urine 1.015 (1.005-1.030); Urine Appearance SL Hazy (CLEAR); Urine Color Yellow (Yellow); pH Urine 5 (5-7)
[2023-04-03 18:20] LABS: Add Urine Microscopic? YES; Bilirubin Urine Neg (Negative); Blood Urine Neg (Negative); Glucose Urine UA 4+ (Normal); Ketones Urine 2+ (Negative); Leukocyte Esterase Urine Negative (Negative); Nitrate Urine Negative (Negative); Protein Urine Neg (Negative); Urobilinogen Urine Norm (Negative)
[2023-04-03 18:21] LABS: Add Urine Culture? No; Bacteria Urine TRACE /hpf; WBC Urine 0-4 /hpf (0-5)
[2023-04-03] MEDS: sodium chloride 0.9% 1,000 ML 999 ML IV (18:52)
--- NOTE | 2023-04-03 20:15 | P.HP_ITS ---
Providers/Chief Complaint Primary Care Provider: Roseline Salazar Chief Complaint: FALL History of Present Illness Monalisa Moore is a 82 year old female with history of hypertension chronic atrial fibrillation on Eliquis hyperlipidemia depression diabetes was transferred [place] [facility] after she was found to have left-sided upper and lower extremity paralysis. She was last seen normal at 11:00 last night by her friend who found her on the floor in the morning. She had rolled out of her bed and was not able to get up. CT head done this afternoon showed acute right MCA stroke. Neurology consulted in ER and as per neurology she was not a candidate for thrombectomy. She is being admitted for conservative management and physical therapy evaluation. In the ER she had a temperature of 99 ?F, found to have WBC of 15.5 and chest x- ray consistent with bilateral upper lobe densities likely infectious versus inflammatory. Review of Systems Narrative: As per HPI Medications/Allergies Home Medications Medication Instructions Recorded Confirmed Last Taken Type citalopram 20 mg tablet (Celexa) 20 mg PO DAILY 05/21/20 04/03/23 05/31/20 History lisinopril 5 mg tablet 5 mg PO DAILY 05/21/20 04/03/23 05/31/20 History lovastatin 40 mg tablet 40 mg PO DAILY 05/21/20 04/03/23 05/31/20 History famotidine 20 mg tablet 20 mg PO BID PRN unknown 05/17/22 04/03/23 Unknown History glyburide 5 mg tablet 5 mg PO DAILY 05/17/22 04/03/23 Unknown History apixaban 5 mg tablet (Eliquis) 5 mg PO DAILY 04/03/23 04/03/23 Unknown History dapagliflozin propanediol 5 mg 5 mg PO DAILY 04/03/23 04/03/23 Unknown History tablet (Farxiga) docusate sodium 100 mg capsule 100 mg PO BID PRN Constipation 04/03/23 04/03/23 Unknown History (Colace) furosemide 20 mg tablet 20 mg PO DAILY PRN Edema 04/03/23 04/03/23 Unknown History metoprolol tartrate 25 mg tablet 12.5 mg PO BID 04/03/23 04/03/23 Unknown History oxybutynin chloride 15 mg 15 mg PO DAILY 04/03/23 04/03/23 Unknown History tablet,extended release 24 hr Allergies Allergy/AdvReac Type Severity Reaction Status Date / Time No Known Allergies Allergy Verified 04/03/23 15:14 PFSH Acute PFSH: Medical History Atrial fibrillation Chest pain Depression Diabetes Dyspnea GERD (gastroesophageal reflux disease) Hyperlipidemia Hypertension Hypokalemia Iron deficiency anemia Stress incontinence Surgical History H/O colonoscopy 2019 H/O oophorectomy bilateral 2019 History of cataract surgery Status post laparoscopic cholecystectomy Family History Father CAD (coronary artery disease) Cancer lung Hypertension Lung disease Mother CAD (coronary artery disease) [place] @ 66/ Diabetes Hypertension Denies family history of Clotting disorder Dementia Chronic kidney disease (CKD) Suicide Anesthesia complication Bleeding disorder Stroke Social History Smoking and tobacco status: never smoked Alcohol intake: never Substance/Drug Use: never Lives independently: Yes Marital status: Single Current occupational status: retired Vitals/I&O/Wt Last Vital Signs Temp 99.2 F 04/03/23 12:28 Pulse 103 H 04/03/23 20:05 Resp 32 H 04/03/23 20:05 BP 155/73 04/03/23 20:05 Pulse Ox 95 04/03/23 20:05 O2 Del Method Room Air 04/03/23 19:47 O2 Flow Rate 5 04/03/23 17:04 Weight last 48 hrs Weight 69.4 kg Physical Exam Narrative: She is lethargic, responds to verbal stimuli, oriented x2 with altered speech Chest clear to auscultation bilaterally Cardiovascular normal heart sounds regular rhythm Abdomen NAD Extremity no edema noted bilaterally lower extremities Neurological left lower facial paralysis, left upper and lower extremity par alysis Urinary Catheter Management: Hall: Cath Placed During This Visit: yes Urinary Catheter Date of Insertion: 04/03/23 Urinary Catheter Time of Insertion: 17:05 Data 04/03/23 13:32 04/03/23 13:32 CT Head: Radiologist's impression: IMPRESSION: 1. No acute intracranial hemorrhage or edema. 2. Low-attenuation region RIGHT frontotemporal location measures 2.5 x 2.7 cm. Favor acute to subacute infarct. Differential includes acute/subacute infarct and underlying neoplasm. Recommend follow-up MRI brain with contrast. CXR: Radiologist's impression: IMPRESSION: 1. Infiltrate and/or atelectasis along the RIGHT heart border that may represent pneumonia or chronic change. LEFT lower lobe plaque atelectasis. 2. No other significant finding. Xray Ortho: Radiologist's impression: X-ray left elbow IMPRESSION: 1. Infiltrate and/or atelectasis along the RIGHT heart border that may represent pneumonia or chronic change. LEFT lower lobe plaque atelectasis. 2. No other significant finding. X-ray pelvis No acute findings Other CT: Radiologist's impression: CT angio head and neck IMPRESSION: 1. ? 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 2. ? Mild stenosis at the carotid bulbs and origins of the internal carotid arteries. No severe stenosis or occlusion. 3. ? Ground-glass pulmonary micro nodules noted in both lung apices suggestive of a small airway infectious or inflammatory process. ? A&P Assessment and plan (1) Acute right MCA stroke: 82-year-old female with history of hypertension hyperlipidemia diabetes atrial fibrillation on Eliquis depression was transferred from [facility] after she presented with left-sided facial weakness upper and lower extremity paralysis and CT consistent with right MCA stroke. Plan Neurology Dr. Grove aware of the patient, as per neurology patient is not a candidate for thrombectomy. Will continue anticoagulation with Eliquis Patient to get MRI brain for further evaluation OT PT evaluation in a.m., speech and swallow eval in a.m. Fall and seizure precautions Resume home medications We will keep n.p.o. for now except medications. Medications to be given after bedside swallow eval IV Pepcid 20 mg every 12 hours for stress ulcer prophylaxis She is already on Eliquis for atrial fibrillation no need for further DVT prophylaxis She is full code for now. Low-grade temperature and mild leukocytosis likely secondary to cerebrovascular accident. Will hold off on antibiotics for now Attestations Medical Necessity Statement*: She needs continued hospitalization for more than 2 midnights for stabilization after acute right MCA stroke and physical therapy evaluation. Time Spent in Patient Care: 30 minutes Coding Level of Care Code Acute Code for [facility] Fwd Diagnoses Acute right MCA stroke I63.511 Time Spent (min) 30
--- NOTE | 2023-04-03 21:45 | ECG_ITS ---
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 Measurements Intervals [place] Rate: 110 P: -5 MI: 156 QRS: 90 QRSD: 81 T: -2 QT: 293 QTc: 397 Interpretive Statements SINUS TACHYCARDIA NONSPECIFIC ST & T-WAVE ABNORMALITY Compared to ECG 06/01/2020 10:51:58 T-wave abnormality now present Sinus rhythm no longer present Electronically Signed On 04-04-2023 9:48:50 CDT by Vlad García M.D. [id number]
[2023-04-04] VITALS (79 sets, daily range): BP systolic 95–147; BP diastolic 46–96; PULSE 86–130; RESP 18–40; TEMP 36.8–37.9; O2SAT 79–98; BMI 26.9
[2023-04-04] MEDS: ipratropium-albuterol 3 mL Neb INHALATION (00:51)
[2023-04-04] MEDS: metoprolol tartrate 1 mg/1 mL SDV 5 mL 5 MG IVP (01:47)
[2023-04-04] MEDS: sodium chloride 0.9% 1,000 ML 75 ML IV ×2 (01:47→16:26)
--- NOTE | 2023-04-04 04:54 | XRR_ITS ---
PROCEDURE INFORMATION: Exam: XR Chest Exam date and time: 04/04/2023 5:03 AM Age: 82 years old Clinical indication: Shortness of breath; Additional info: Shortness of breath, possible aspiration TECHNIQUE: Imaging protocol: Radiologic exam of the chest. Views: 1 view. COMPARISON: CR XR chest 1V portable [id number] 04/03/2023 2:00 PM FINDINGS: Lungs: Unremarkable. No consolidation. Pleural spaces: Unremarkable. No pleural effusion. No pneumothorax. Heart/Mediastinum: Unremarkable. No cardiomegaly. Bones/joints: Unremarkable. XR/XR chest 1V portable [id number] IMPRESSION: No acute findings.
--- NOTE | 2023-04-04 05:02 | ECG_ITS ---
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 Measurements Intervals [place] Rate: 152 P: 0 NH: 0 QRS: 43 QRSD: 86 T: 104 QT: 279 QTc: 444 Interpretive Statements ATRIAL FIBRILLATION WITH RAPID VENTRICULAR RESPONSE LOW QRS VOLTAGE IN EXTREMITY LEADS [QRS DEFLECTION < 0.5 mV IN LIMB LEADS] NONSPECIFIC ST & T-WAVE ABNORMALITY Compared to ECG 04/03/2023 21:45:48 Low QRS voltage now present Sinus tachycardia no longer present T-wave abnormality still present Electronically Signed On 04-04-2023 9:46:09 CDT by Vlad García M.D. [id number]
[2023-04-04] MEDS: metoprolol tartrate 1 mg/1 mL SDV 5 mL 10 MG IVP (05:17)
[2023-04-04] MEDS: dilTIAZem 5 mg/mL SDV 5 mL IVP ×2 (05:31→05:37)
[2023-04-04 05:43] LABS: Gastricult Occult Blood Positive (Negative)
--- NOTE | 2023-04-04 05:50 | XRR_ITS ---
PROCEDURE INFORMATION: Exam: XR Chest Exam date and time: 04/04/2023 5:56 AM Age: 82 years old Clinical indication: Device placement; Ng tube; Additional info: Ng tube placement TECHNIQUE: Imaging protocol: Radiologic exam of the chest. Views: 1 view. COMPARISON: CR (CHEST, ) 04/04/2023 5:03 AM FINDINGS: Tubes, catheters and devices: The enteric tube appears to be coiled at the top of the esophagus/pharynx. Lungs: Unremarkable. No consolidation. Pleural spaces: Unremarkable. No pleural effusion. No pneumothorax. Heart/Mediastinum: Unremarkable. No cardiomegaly. Bones/joints: Unremarkable. XR/XR chest 1V portable [id number] IMPRESSION: 1. The enteric tube appears to be coiled at the top of the esophagus/pharynx. 2. No evidence of acute pulmonary process.
[2023-04-04 06:28] LABS: Basophils # 0.1 10^3/uL (0.0-0.1); Basophils % 0.3 %; Eosinophils # 0.1 10^3/uL (0.0-0.8); Eosinophils % 0.3 %; Hematocrit 48.4 % (36-47); Lymphocytes # 1.3 10^3/uL (0.8-4.8); Lymphocytes % 4.3 %; Mean Corpuscular HGB Conc 31.6 g/dL (30-55); Mean Corpuscular Hemoglobin 30.2 pg (27-33); Mean Corpuscular Volume 95.7 fl (85-98); Monocytes # 1.9 10^3/uL (0.2-0.9); Monocytes % 6.4 %; Neutrophils # 26.57 10^3/uL (1.8-7.7); Neutrophils % 88.1 %; Nucleated Red Blood Cells % 0 %; Platelet Count 306 10^3/cmm (157-399); Red Blood Count 5.06 10^6/uL (3.85-5.65); Red Cell Distribution Width 13.6 % (12.1-15.1)
--- NOTE | 2023-04-04 06:39 | XRR_ITS ---
PROCEDURE INFORMATION: Exam: XR Chest Exam date and time: 04/04/2023 6:49 AM Age: 82 years old Clinical indication: Device placement; Ng tube; Additional info: Confrim ng placement TECHNIQUE: Imaging protocol: Radiologic exam of the chest. Views: 1 view. COMPARISON: CR (CHEST, ) 04/04/2023 5:56 AM FINDINGS: Tubes, catheters and devices: The enteric tube now projects into the stomach. Lungs: Unremarkable. No consolidation. Pleural spaces: Unremarkable. No pleural effusion. No pneumothorax. Heart/Mediastinum: Unremarkable. No cardiomegaly. Bones/joints: Unremarkable. XR/XR chest 1V portable [id number] IMPRESSION: Well placed enteric tube.
[2023-04-04 06:45] LABS: Alanine Aminotransferase 16 U/L (0-33); Alkaline Phosphatase 85 U/L (35-105); Anion Gap 25.7 (5-19); Aspartate Amino Transferase 26 U/L (0-32); Blood Urea Nitrogen 24 mg/dL (8-23); Calcium 8.9 mg/dL (8.5-10.5); Chloride 105 mmol/L (98-107); Globulin 2.8 g/dL (1.3-4.6); Glucose 264 mg/dL (65-115); Osmolality Calculated 293 mOsm/kg (285-295); Potassium 4.7 mmol/L (3.5-5.1); Sodium 135 mmol/L (136-145); Total Bilirubin 0.7 mg/dL (0.15-1.2); Total Protein 6.8 g/dL (6.6-8.7)
[2023-04-04 06:56] LABS: Carbon Dioxide 9 mmol/L (22-29); White Blood Count 30.15 10^3/uL (3.29-11.43)
[2023-04-04 08:03] LABS: Glucose Point of Care 239 mg/dL (70-110)
[2023-04-04 09:19] LABS: Estmated Average Glucose 166; Hemoglobin A1C 7.4 % (4.0-6.0)
[2023-04-04] MEDS: insulin lispro 100 unit/1 mL SUBCUT ×4 (09:45→20:59)
[2023-04-04] MEDS: vancomycin 750 MG in sodium chloride 0.9% 250 ML 250 MG IV (09:48)
[2023-04-04] MEDS: piperacillin-tazobactam 3.375 GM in sodium chloride 0.9% (plus) 50 ML IV ×2 (09:50→16:23)
[2023-04-04] MEDS: pantoprazole 40 mg SDV IVP ×2 (09:51→20:51)
--- NOTE | 2023-04-04 10:57 | PC.NURSE ---
Patient removed NG tube. Patient also frequently removing oxygen causing SPO2 to drop to the mid 80's. Despite multiple attmepts at education, patient conitnues to remove oxygen. Keeping O2 levels 95% or greater is necessary for stroke recovery. Dr shah ordered restraints and to attempt to find a sitter as an alternative in the meantime. No sitters available at this time but data warehouse analyst notified of request. restraint applied to patient's right wrist (left arm is flaccid due to stroke). Family who is at bedside has been educated on restraints.
[2023-04-04 12:11] LABS: Adenovirus Not Detected (NOT DETECT); Chlamydia Pneumoniae Not Detected (NOT DETECT); Coronavirus 229E,HKU1,NL63,OC4 Not Detected (NOT DETECT); Human Metapneumovirus Not Detected (NOT DETECT); Human Rhinovirus/Enterovirus Not Detected (NOT DETECT); Influenza A Not Detected (NOT DETECT); Influenza A H1 Not Detected (NOT DETECT); Influenza A H1-2009 Not Detected (NOT DETECT); Influenza A H3 Not Detected (NOT DETECT); Influenza B Not Detected (NOT DETECT); Mycoplasma Pneumoniae Not Detected (NOT DETECT); Parainfluenza Virus Type 1 Not Detected (NOT DETECT); Parainfluenza Virus Type 2 Not Detected (NOT DETECT); Parainfluenza Virus Type 3 Not Detected (NOT DETECT); Parainfluenza Virus Type 4 Not Detected (NOT DETECT); Respiratory Syncytial Virus A Not Detected (NOT DETECT); Respiratory Syncytial Virus B Not Detected (NOT DETECT); SARS-COV-2 Not Detected (NOT DETECT)
[2023-04-04] MEDS: heparin drip 25,000 UNIT/500 ML PREMIX 18.72 UNIT IV (12:47)
[2023-04-04 12:50] LABS: Glucose Point of Care 202 mg/dL (70-110)
--- NOTE | 2023-04-04 13:04 | PM.PN ---
Subjective Subjective: History of Present Illness Monalisa Moore is a 82 year old female with a history of type 2 diabetes mellitus, irregular heart rate and hypertension.? According to the crossbar switch adjuster, she last spoke to the patient around 11 PM on 04/02/2023.? On the morning of 04/03/2023 the crossbar switch adjuster stated that she found the patient down with paralysis of the left arm and left leg.? The patient was brought to [facility] emergency room.? The patient was well out of the 4-1/2-hour window.? Therefore the patient was not a candidate for tPA.? Noncontrast head CT scan was obtained and was reported to reveal decreased attenuation in the right frontal/temporal area extending into the insula with slight mass effect.? Findings suggestive of subacute infarction.? On clinical examination, the patient NIH score equals 12.? Patient's examination revealed left lower facial weakness, paralysis of the left arm and left leg, neglect involving the left side of her body and right gaze preference.? Coordination could not be assessed.? I spoke with the ER physician who will order CT angiogram of the head and neck to assess for thrombus in the internal carotid artery in order to determine if the patient is a candidate for thrombectomy. Patient underwent CT angiogram of the head and neck which was initially reported to be negative but after repeat review of the imaging studies radiology informed the ER physician that the study was suggestive of right MCA distribution thrombosis. The ER physician contacted [facility] who reviewed the case and determined that the patient was not a candidate for thrombectomy. Therefore the patient was admitted to [facility]. Due to the patient having occult blood in her stool, there was concern that the patient may have experienced a GI bleed and therefore Eliquis was not continued. I spoke with the admitting physician who also informed me that the patient may have not been taking Eliquis as prescribed when they reviewed the patient's pharmacy records. Currently the patient is on IV heparin and IV diltiazem. The patient remains awake and cooperative she still has left lower facial weakness and left-sided paralysis. Past medical history: Type 2 diabetes mellitus Hypertension hypertension Irregular heart rate addressed by cardiology Dr. Schuster Hyperlipidemia Chronic atrial fibrillation Gastroesophageal reflux disease Drug allergies: None Outpatient medications: Eliquis 5 mg p.o. daily Celexa 20 mg p.o. daily Farxiga 5 mg p.o. daily Colace 100 mg p.o. twice daily Pepcid 20 mg p.o. twice daily Lasix 20 mg p.o. daily, as needed Glyburide 5 mg p.o. daily Lisinopril 5 mg p.o. daily Lovastatin 40 mg p.o. daily Metoprolol 12.5 mg p.o. twice daily Oxybutynin 15 mg p.o. daily Habits: None Family history: Unknown Review of Systems General:?? Reports: 10 or mor e systems reviewed and unremarkable except in HPI and below Vitals/I&O/Wt Last Vital Signs Temp 99.3 F 04/04/23 11:00 Pulse 104 H 04/04/23 11:00 Resp 28 H 04/04/23 11:00 BP 126/61 04/04/23 11:00 Pulse Ox 96 04/04/23 11:00 O2 Del Method Nasal Cannula 04/04/23 11:00 O2 Flow Rate 4 04/04/23 11:00 04/03/23 04/04/23 04/04/23 22:59 06:59 14:59 Intake Total 1331.667 / 1331.667 293.083 / 293.083 Output Total 750 / 750 400 / 1150 Balance -750 / -750 931.667 / 181.667 293.083 / 293.083 Weight last 48 hrs Weight 147 lb 6.4 oz Weight 153 lb Physical Exam Narrative: NIH score = 12 The patient is alert and oriented to person place and situation.? Patient answered questions correctly and was able to follow commands.? Speech clear.? Head atraumatic neck supple.? Cranial nerves II through XII revealed right gaze preference and patient unable to look past the midline to the left.? There was also left lower facial weakness.? Pupils 3 to 4 mm and reactive to light.? Motor testing 5/5 in the right arm and right leg and 0/5 in the left arm and left leg.? Deep tendon reflexes 2+ bilaterally.? Plantar responses flexor bilaterally.? There was no clonus.? Sensory examination intact to touch.? There was extinction on double sensory stimulation with the patient neglecting her left side.? Throat clear.? Lungs clear.? History of atrial fibrillation.? Extremities were negative for clubbing or cyanosis Urinary Catheter Management: Hall: Cath Placed During This Visit: yes Reason for Continuing Indwelling Catheter: Accurate Measurement of Urinary Output in Critically Ill Patients Urinary Catheter Date of Insertion: 04/03/23 Urinary Catheter Time of Insertion: 17:05 Data 04/04/23 06:16 04/04/23 06:16 Micro: Microbiology 04/04/23 10:00 Legionella Urinary Antigen - Final Urine Catheterized A&P Assessment and plan (1) Acute right MCA stroke: Impression: 1.? Acute right MCA distribution stroke manifested as left-sided paralysis, left-sided neglect and left lower facial weakness.? Note: The patient's last known well was 11 PM on 04/02/2023.? Patient presented to the [facility] emergency room on 04/03/2023 outside of the tPA window of 4-1/2 hours.? Also patient is on anticoagulation and therefore the patient was not a candidate for tPA and no tPA was administered. 2.? Chronic atrial fibrillation 3.? Hypertension 4.? Type 2 diabetes mellitus 5. Occult blood suggestive of possible GI bleed 6. Possible aspiration pneumonia Plan: 1. Continue current treatment 2. Continue lovastatin 40 mg p.o. daily 3. Resume anticoagulation with oral medication once patient stable 4. Since there is indication to suggest patient was not taking Eliquis as prescribed, recommend not adding aspirin at this time (2) Chronic atrial fibrillation with RVR: Attestations Medical Necessity Statement*: Patient seen for critical care for right MCA distribution stroke Coding Level of Care Code 42924 Diagnoses Acute right MCA stroke I63.511 Chronic atrial fibrillation with RVR I48.20
--- NOTE | 2023-04-04 16:13 | PM.PN ---
Subjective Subjective: She denies any headache or discomfort. She is able to respond, but frequently difficult to understand. Reports that she has been intermittently taking apixaban. Names her sister Amy Mixon as surrogate decision maker in case she could not make decisions for herself. Vitals/I&O/Wt Last Vital Signs Temp 98.3 F 04/04/23 13:30 Pulse 102 H 04/04/23 14:00 Resp 28 H 04/04/23 13:45 BP 139/77 04/04/23 13:45 Pulse Ox 96 04/04/23 13:45 O2 Del Method Nasal Cannula 04/04/23 13:30 O2 Flow Rate 3 04/04/23 13:30 04/04/23 04/04/23 04/04/23 06:59 14:59 22:59 Intake Total 1331.667 / 1331.667 381.625 / 381.625 Output Total 400 / 1150 Balance 931.667 / 181.667 381.625 / 381.625 Weight last 48 hrs Weight 66.86 kg Weight 69.4 kg Physical Exam Const: COMMON NORMALS: alert GENERAL APPEARANCE: cooperative ORIENTATION/CONSCIOUSNESS: Yes awake OTHER: Generally weak. Mildly somnolent. HENMT: COMMON NORMALS: oropharynx normal Neck/C-Spine: COMMON NORMALS: no JVD Resp: COMMON NORMALS: normal respiratory effort and clear to auscultation bilaterally AUSCULTATION: clear to auscultation bilaterally Cardio: COMMON NORMALS: no JVD, regular rhythm, S1 normal heart sound present, S2 normal heart sound present and No murmurs present (Cardio) RHYTHM: regular rhythm HEART SOUNDS: S1 normal heart sound present and S2 normal heart sound present GI: COMMON NORMALS: Normal to inspection, nondistended, normoactive bowel sounds present, Soft to palpation and non-tender PALPATION: Yes Soft to palpation Extremity: COMMON NORMALS: no joint enlargement and no pedal edema Neuro: SENSORIUM/ORIENTATION: Yes alert OTHER: Left-sided hemiplegia. Left-sided facial droop. Dysarthria. Aphonia. Sensation present on the left, although reported diminished to pinprick. Skin: COMMON NORMALS: no rashes or lesions noted GENERAL SKIN EXAM: no rashes or lesions noted Urinary Catheter Management: Hall: Cath Placed During This Visit: yes Reason for Continuing Indwelling Catheter: Accurate Measurement of Urinary Output in Critically Ill Patients Urinary Catheter Date of Insertion: 04/03/23 Urinary Catheter Time of Insertion: 17:05 Data 04/04/23 06:16 04/04/23 06:16 Micro: Microbiology 04/04/23 10:00 Bacterial Antigens - Final Urine,Voided 04/04/23 10:00 Legionella Urinary Antigen - Final Urine Catheterized A&P Assessment and plan (1) Acute right MCA stroke: 82-year-old female with history of hypertension hyperlipidemia diabetes atrial fibrillation on Eliquis depression was transferred from [facility] after she presented with left-sided facial weakness upper and lower extremity paralysis and CT consistent with right MCA stroke. Plan Reviewed neurology documentation. Discussed with neurology, she has been on Eliquis, but has been taking it inconsistently. Discussed with her as well as her sister risk of recurrent stroke. Discussed, however, also risk of hemorrhagic conversion with MCA territory CVA. As per discussion with neurology continue anticoagulation for now, given hospitalization for now switched over to heparin drip (per discussion with nursing no bolus), so SCDs may be discontinued in case of leading especially given positive Gastroccult with consideration of possible component of upper GI bleed. Started on IV PPI twice daily. Currently continue permissive hypertension, heart rates are now better with Cardizem drip. Continue for now as he is still n.p.o. Discussed with speech therapy, continue n.p.o. for now. Discussed with her sister risk of recurrent aspiration. Noted worsening leukocytosis on review of CBC, after 30.15. Discussed consideration of aspiration. For now continue empiric antibiotic coverage with Zosyn, vancomycin. Reassess. We will need control of risk factors for stroke going forward, reviewed A1c, discussed with her sister. Will need statin to be escalated to high-dose, atorvastatin or Crestor to be continued at discharge. Discussed antiplatelet with neurology, for now given she has been consistent with taking her Eliquis, even just anticoagulation but taking consistently would be preferable, for now hold off on addition of antiplatelet. Pending PT, OT evaluation. Discussed with case management, currently return home is not possible, she will need placement to SNF for after discharge. For now continue gentle IV hydration. Monitor blood pressures. Reassess volume status. Renal function and electrolytes reviewed. Magnesium reviewed. UA reviewed. Check COVID PCR, reviewed. Discussed risks of complication, cerebral edema, seizures, other complications following MCA territory CVA. Continue to monitor. Once in better shape consider additional assessment by MRI, follow-up with neurology. CTA results appreciated. Monitor oxygenation, noted requiring 3 L of oxygen. Attestations Medical Necessity Statement*: Continue admission for assessment management following MCA CVA. Diagnoses Acute right MCA stroke I63.511
[2023-04-04 18:07] LABS: Glucose Point of Care 168 mg/dL (70-110)
--- NOTE | 2023-04-04 19:11 | PC.NURSE ---
Shift Summary: Uneventful shift, patient has rested in bed throughout the day. When asked orientation questions, patient is only able to mumble the [facility], but nurse gets the impression that she is oriented to person, place, time and situation, but due to expressive aphasia she cannot answer questions. Heparin drip started. Restraints were briefly needed due to removing oxygen therapy. Family has been updated.
[2023-04-04] MEDS: dilTIAZem 100 MG in sodium chloride 0.9% (add-van) 100 ML 10 MG IV (19:35)
[2023-04-04 21:02] LABS: Partial Thromboplastin Time 50.8 SECONDS (23.9-36.7)
[2023-04-04 23:06] LABS: Glucose Point of Care 147 mg/dL (70-110)
[2023-04-05] VITALS (98 sets, daily range): BP systolic 91–156; BP diastolic 49–88; PULSE 74–109; RESP 18–30; TEMP 36.6–37.1; O2SAT 93–99
[2023-04-05] MEDS: piperacillin-tazobactam 3.375 GM in sodium chloride 0.9% (plus) 50 ML IV ×4 (00:07→23:40)
[2023-04-05 03:42] LABS: Partial Thromboplastin Time 53.3 SECONDS (23.9-36.7)
[2023-04-05] MEDS: sodium chloride 0.9% 1,000 ML 75 ML IV (04:37)
[2023-04-05] MEDS: dilTIAZem 100 MG in sodium chloride 0.9% (add-van) 100 ML 10 MG IV (04:37)
[2023-04-05] MEDS: heparin 5,000 unit/mL INJ 1 mL IV (04:52)
[2023-04-05 06:46] LABS: Basophils % 0.1 %; Hematocrit 47.1 % (36-47); Lymphocytes # 1.4 10^3/uL (0.8-4.8); Mean Corpuscular HGB Conc 30.4 g/dL (30-55); Mean Corpuscular Volume 101.9 fl (85-98); Mean Platelet Volume 12.6 fL (7.4-10.4); Monocytes # 1.6 10^3/uL (0.2-0.9); Monocytes % 6.9 %; Neutrophils # 20.29 10^3/uL (1.8-7.7); Neutrophils % 86.4 %; Nucleated Red Blood Cells % 0 %; Platelet Count 236 10^3/cmm (157-399); Red Blood Count 4.62 10^6/uL (3.85-5.65); Red Cell Distribution Width 14.1 % (12.1-15.1); White Blood Count 23.52 10^3/uL (3.29-11.43)
[2023-04-05 07:05] LABS: Blood Urea Nitrogen 29 mg/dL (8-23); Calcium 8.7 mg/dL (8.5-10.5); Chloride 112 mmol/L (98-107); Glucose 162 mg/dL (65-115); Osmolality Calculated 301 mOsm/kg (285-295); Sodium 141 mmol/L (136-145)
[2023-04-05 07:36] LABS: Anion Gap 25.7 (5-19); Potassium 4.7 mmol/L (3.5-5.1)
[2023-04-05 07:38] LABS: Carbon Dioxide 8 mmol/L (22-29)
[2023-04-05 07:44] LABS: Glucose Point of Care 148 mg/dL (70-110)
[2023-04-05 08:33] LABS: Ketone (Acetest) Serum Positive (Negative)
[2023-04-05 08:44] LABS: Alveolar-Arterial Oxygen Gradi 6.7 mmHg (5-10); Arterial Blood Gas Hematocrit 44.6 % (37-47); Base Excess ABG -19.5 mmol/L (-2.0-2.0); Blood Gas Allen Test Pos; Blood Gas Operator Identificat CAK; Blood Gas Sample Site Radial, left; Blood Gas Sample Type Arterial; Carboxyhemoglobin 1.4 %THgb (0.4-20.1); HCO3 ABG 6.7 mmol/L (22-26); HGB O2 Sat 93.9 % (95-100); Ionized Calcium Level - ABG 1.3 mmol/L (1.1-1.4); Methemoglobin 0.4 % (0.4-1.5); Oxygen Device ROOM AIR; Oxygen Saturation ABG 95.6; PO2 ABG 74.3 mmHg (80.0-100.0); Potassium Level - ABG 5.3 mmol/L (3.5-5.0); Total Hemoglobin 14.5 g/dL (12-16)
[2023-04-05 08:46] LABS: ABG PCO2 18.2 mmHg (35-45); ABG PH Result 7.18 (7.35-7.45)
[2023-04-05] MEDS: vancomycin 750 MG in sodium chloride 0.9% 250 ML 250 MG IV (08:53)
[2023-04-05] MEDS: insulin lispro 100 unit/1 mL SUBCUT (08:56)
[2023-04-05] MEDS: ipratropium-albuterol 3 mL Neb INHALATION (08:56)
[2023-04-05] MEDS: pantoprazole 40 mg SDV IVP ×2 (08:57→20:23)
--- NOTE | 2023-04-05 10:37 | P.PN_ITS ---
Subjective Subjective: Feels thirsty. Mouth is dry. No other new symptoms. Vitals/I&O/Wt Last Vital Signs Temp 97.9 F 04/05/23 02:43 Pulse 96 04/05/23 09:30 Resp 25 H 04/05/23 09:30 BP 91/51 04/05/23 09:30 Pulse Ox 96 04/05/23 09:30 O2 Del Method Room Air 04/05/23 09:30 O2 Flow Rate 2 04/05/23 08:25 04/04/23 04/05/23 04/05/23 22:59 06:59 14:59 Intake Total 948.776 / 9422.386 5246.733 / 2465.134 50 / 50 Output Total 1000 / 1000 Balance 948.776 / 1340.401 124.733 / 1465.134 50 / 50 Weight last 48 hrs Weight 65.317 kg Weight 66.86 kg Weight 69.4 kg Physical Exam Const: COMMON NORMALS: alert GENERAL APPEARANCE: cooperative ORIENTATION/CONSCIOUSNESS: Yes awake OTHER: Generally weak. Mildly somnolent but more responsive today. HENMT: COMMON NORMALS: oropharynx normal OTHER: Dry MM Neck/C-Spine: COMMON NORMALS: no JVD Resp: COMMON NORMALS: normal respiratory effort and clear to auscultation bilaterally AUSCULTATION: clear to auscultation bilaterally Cardio: COMMON NORMALS: no JVD, regular rhythm, S1 normal heart sound present, S2 normal heart sound present and No murmurs present (Cardio) RHYTHM: regular rhythm HEART SOUNDS: S1 normal heart sound present and S2 normal heart sound present GI: COMMON NORMALS: Normal to inspection, nondistended, normoactive bowel sounds present, Soft to palpation and non-tender PALPATION: Yes Soft to palpation Extremity: COMMON NORMALS: no joint enlargement and no pedal edema Neuro: SENSORIUM/ORIENTATION: Yes alert OTHER: Left-sided hemiplegia. Left-sided facial droop. Dysarthria. Aphonia. Sensation present on the left. Unable to tell if sensory neglect on exam. Skin: COMMON NORMALS: no rashes or lesions noted GENERAL SKIN EXAM: no rashes or lesions noted Urinary Catheter Management: Hall: Cath Placed During This Visit: yes Reason for Continuing Indwelling Catheter: Accurate Measurement of Urinary Output in Critically Ill Patients Urinary Catheter Date of Insertion: 04/03/23 Urinary Catheter Time of Insertion: 17:05 Data 04/05/23 06:20 04/05/23 06:20 Micro: Microbiology 04/04/23 10:00 Bacterial Antigens - Final Urine,Voided 04/04/23 10:00 Legionella Urinary Antigen - Final Urine Catheterized A&P Assessment and plan (1) Acute right MCA stroke: 82-year-old female with history of hypertension hyperlipidemia diabetes atrial fibrillation on Eliquis depression was transferred from [facility] after she presented with left-sided facial weakness upper and lower extremity paralysis and CT consistent with right MCA stroke. Plan Very poor peripheral access: Had multiple sticks with possible blood draws, discussed with her possible risks with PICC/midline. Requested. Metabolic acidosis: Worsening metabolic acidosis. Bicarb noted 8 today. Did have ketones in the urine. Anion gap 25.7. ABG obtained, reviewed, metabolic acidosis by my interpretation, 7.18/18.2/74.3. Seems may be normoglycemic ketoacidosis. Serum ketones requested, reviewed noted positive. Start D5-0.45. Glucose target 150-200. Insulin drip. Check magnesium, phosphorus. Follow-up chemistry. Some component of hyperchloremic metabolic acidosis. BP soft, no oral intake currently, decrease cardizem infusion. Use dig if needed. No oral intake currently. A-fib with RVR, heart rate better, down to 90s. 1 readings of blood pressure, discussed we will decrease Cardizem drip. Continue telemetry monitoring. Anticoagulation with heparin drip. Right MCA CVA: Continue heparin drip. Once resumes enteric intake add statin. still at risk of MCA stroke related complications. Monitor. Will need placement. Discussed with case management. COVID PCR results reviewed, negative. Currently continue permissive hypertension, heart rates are now better with Cardizem drip. Decrease rate. At risk of aspiration. For now continue empiric antibiotic coverage with Zosyn, vancomycin. Reassess. We will need control of risk factors for stroke going forward, reviewed A1c, discussed with her sister. Will need statin to be escalated to high-dose, atorvastatin or Crestor to be continued at discharge. Discussed antiplatelet with neurology, for now given she has been consistent with taking her Eliquis, even just anticoagulation but taking consistently would be preferable, for now hold off on addition of antiplatelet. PT, OT evaluation. SNF for after discharge. Risks of complication, cerebral edema, seizures, other complications following MCA territory CVA. Continue to monitor. Once in better shape consider additional assessment by MRI, follow-up with neurology. CTA results appreciated. Monitor oxygenation, noted requiring 3 L of oxygen. Attestations Medical Necessity Statement*: Continue admission for assessment management of worsening metabolic acidosis, DKA. Status post MCA t territory CVA, severe dysphagia, risk of aspiration, unable to take oral medications. And optimization of control of A-fib with RVR. Coding Level of Care Code Critical Care >/= 30 minutes Critical care time (in minutes): 45 The high probability of a clinically significant, sudden or life threatening deterioration, as referenced in this documentation, required my full and direct attention, intervention and personal management. The critical care time shown is in addition to time spent performing any reported separately billable procedures and includes the following: [x] Data and vital sign review and interpretation [x ] Patient assessment, examination and intervention [x] Medication orders and management [x] Patient/Family updates as able [x] Care Coordination and Documentation. Diagnoses Acute right MCA stroke I63.511
[2023-04-05 11:03] LABS: Magnesium 2.3 mg/dL (1.7-2.3); Phosphorus 2.7 mg/dL (2.5-4.5)
[2023-04-05] MEDS: dextrose 5%-sod chloride 0.45% 1,000 ML 150 ML IV ×3 (11:23→23:40)
[2023-04-05 11:25] LABS: Glucose Point of Care 172 mg/dL (70-110)
[2023-04-05 11:25] LABS: Partial Thromboplastin Time 57.1 SECONDS (23.9-36.7)
[2023-04-05 11:36] LABS: Blood Urea Nitrogen 29 mg/dL (8-23); Calcium 8.5 mg/dL (8.5-10.5); Chloride 115 mmol/L (98-107); Glucose 159 mg/dL (65-115); Osmolality Calculated 307 mOsm/kg (285-295); Sodium 144 mmol/L (136-145)
--- NOTE | 2023-04-05 11:36 | PC.NURSE ---
Heparin drip: Ptt resulted at 57.1 no changes to rate per protocol.
[2023-04-05 11:45] LABS: Carbon Dioxide 8 mmol/L (22-29)
[2023-04-05] MEDS: insulin regular-human 250 UNIT in sodium chloride 0.9% 250 ML 6.57 UNIT IV (11:51)
--- NOTE | 2023-04-05 12:25 | XR_ITS ---
WS: [id number] Exam: XR chest 1V portable [id number] Date/Time of Exam: 04/05/2023 1:44 PM Reason For Exam: Post PICC insertion Comparison 04/04/2023. A right-sided PICC line has been placed and appears to and in the region of the right atrium. There a re bibasal infiltrates noted. Cardiomediastinal silhouette is unremarkable. No pneumothorax or pleura l effusion. Bony structures are intact. EKG leads superimpose the chest. IMPRESSION: 1. Right-sided PICC line appearing to end in the RIGHT atrium. 2. Increasing infiltrate in the mid and lower RIGHT lung. There is also infiltrate in the LEFT base s howing little change. Enteric tube has been removed since the last study. A second image of the chest was obtained after repositioning of the right-sided PICC line. The line o n the final image appears to end near the cavoatrial junction and is in satisfactory position. There are no other changes in the overall appearance of the chest. IMPRESSION: 1. Final position of the RIGHT PICC line is at the cavoatrial junction in satisfactory location.
--- NOTE | 2023-04-05 14:00 | PC.NURSE ---
Triple lumen PICC placed to right brachial vein. Referred to PICC nurse for PICC placement due to poor peripheral access and multiple IV meds including Vancomycin and heparin gtt. Right arm assessed with brachial vein measuring 3.6 mm, straight, and apparent best choice for placement. Using sterile technique and MST, right brachial vein accessed x 1 stick. Mid-arm circumference measured 10 cm from right AC 29 cm. Trimmed cath length 37 cm with 3 cm external length noted. CXR confirms tip in cavoatrial junction, in good position for use per radiologist. Line secured with stat-lock. Insertion site covered with Biopatch and TSM. Report given to bedside nurseEstefania.
[2023-04-05 14:34] LABS: Glucose Point of Care 219 mg/dL (70-110)
[2023-04-05 15:31] LABS: Glucose Point of Care 194 mg/dL (70-110)
[2023-04-05] MEDS: dilTIAZem 100 MG in sodium chloride 0.9% (add-van) 100 ML IV (16:14)
[2023-04-05] MEDS: heparin drip 25,000 UNIT/500 ML PREMIX 20 UNIT IV (16:16)
[2023-04-05 16:58] LABS: Blood Urea Nitrogen 27 mg/dL (8-23); Calcium 8.1 mg/dL (8.5-10.5); Carbon Dioxide 11 mmol/L (22-29); Chloride 118 mmol/L (98-107); Glucose 204 mg/dL (65-115); Osmolality Calculated 305 mOsm/kg (285-295); Sodium 142 mmol/L (136-145)
[2023-04-05 17:05] LABS: Anion Gap 16.7 (5-19); Potassium 3.7 mmol/L (3.5-5.1)
[2023-04-05 17:51] LABS: Glucose Point of Care 193 mg/dL (70-110)
--- NOTE | 2023-04-05 17:55 | PC.NURSE ---
Insulin drip: Notified Dr. Hoffman that per protocol Insulin drip is running at 0.5 units/hr, pending BMP results for change in orders. Dr. Hoffman notified of BMP results and verbal orders to keep following current plan of care were given.
[2023-04-05 17:57] LABS: Glucose Point of Care 186 mg/dL (70-110)
[2023-04-05 18:07] LABS: Partial Thromboplastin Time 60.8 SECONDS (23.9-36.7)
[2023-04-05 19:36] LABS: Glucose Point of Care 246 mg/dL (70-110)
[2023-04-05 19:50] LABS: Glucose Point of Care 279 mg/dL (70-110)
[2023-04-05 20:56] LABS: Glucose Point of Care 229 mg/dL (70-110)
[2023-04-05 21:04] LABS: Anion Gap 14.6 (5-19); Blood Urea Nitrogen 26 mg/dL (8-23); Calcium 8.2 mg/dL (8.5-10.5); Carbon Dioxide 13 mmol/L (22-29); Chloride 118 mmol/L (98-107); Glucose 245 mg/dL (65-115); Osmolality Calculated 307 mOsm/kg (285-295); Potassium 3.6 mmol/L (3.5-5.1); Sodium 142 mmol/L (136-145)
[2023-04-05 21:58] LABS: Glucose Point of Care 210 mg/dL (70-110)
[2023-04-05 23:03] LABS: Glucose Point of Care 201 mg/dL (70-110)
[2023-04-05 23:45] LABS: Partial Thromboplastin Time 63.3 SECONDS (23.9-36.7)
[2023-04-05 23:57] LABS: Glucose Point of Care 222 mg/dL (70-110)
[2023-04-06] VITALS (63 sets, daily range): BP systolic 87–151; BP diastolic 47–86; PULSE 74–120; RESP 16–30; TEMP 36.5–37.3; O2SAT 93–98
[2023-04-06 01:02] LABS: Glucose Point of Care 227 mg/dL (70-110)
[2023-04-06 02:12] LABS: Glucose Point of Care 200 mg/dL (70-110)
[2023-04-06 03:05] LABS: Glucose Point of Care 189 mg/dL (70-110)
[2023-04-06 04:04] LABS: Glucose Point of Care 181 mg/dL (70-110)
[2023-04-06 04:39] LABS: Basophils % 0.1 %; Hematocrit 36.8 % (36-47); Lymphocytes # 1.1 10^3/uL (0.8-4.8); Lymphocytes % 7.3 %; Mean Corpuscular HGB Conc 32.1 g/dL (30-55); Mean Corpuscular Hemoglobin 30.5 pg (27-33); Mean Corpuscular Volume 95.1 fl (85-98); Mean Platelet Volume 12.5 fL (7.4-10.4); Monocytes % 6.6 %; Neutrophils # 12.37 10^3/uL (1.8-7.7); Neutrophils % 85.6 %; Nucleated Red Blood Cells % 0 %; Platelet Count 206 10^3/cmm (157-399); Red Blood Count 3.87 10^6/uL (3.85-5.65); Red Cell Distribution Width 14.2 % (12.1-15.1); White Blood Count 14.45 10^3/uL (3.29-11.43)
[2023-04-06 04:58] LABS: Glucose Point of Care 203 mg/dL (70-110)
[2023-04-06] MEDS: dextrose 5%-sod chloride 0.45% 1,000 ML 150 ML IV (05:13)
[2023-04-06 05:59] LABS: Glucose Point of Care 205 mg/dL (70-110)
[2023-04-06 06:01] LABS: Blood Urea Nitrogen 20 mg/dL (8-23); Calcium 7.9 mg/dL (8.5-10.5); Carbon Dioxide 15 mmol/L (22-29); Chloride 115 mmol/L (98-107); Glucose 226 mg/dL (65-115); Magnesium 1.9 mg/dL (1.7-2.3); Osmolality Calculated 298 mOsm/kg (285-295); Sodium 139 mmol/L (136-145)
[2023-04-06 06:02] LABS: Anion Gap 12.1 (5-19); Potassium 3.1 mmol/L (3.5-5.1)
[2023-04-06 06:03] LABS: Phosphorus 0.7 mg/dL (2.5-4.5)
--- NOTE | 2023-04-06 06:32 | PC.NURSE ---
Critical Phosphorus reported to Dr. Guy at 0.7. Potassium was also 3.1. Dr ordered for Potassium to be infused
[2023-04-06 07:07] LABS: Glucose Point of Care 252 mg/dL (70-110)
[2023-04-06] MEDS: piperacillin-tazobactam 3.375 GM in sodium chloride 0.9% (plus) 50 ML IV ×2 (07:21→15:51)
[2023-04-06] MEDS: lidocaine 1% 5 ML in potassium chloride premix 100 ML 25 ML IV (07:22)
[2023-04-06 08:06] LABS: Partial Thromboplastin Time 57.3 SECONDS (23.9-36.7)
[2023-04-06 08:21] LABS: Glucose Point of Care 246 mg/dL (70-110)
[2023-04-06] MEDS: pantoprazole 40 mg SDV IVP ×2 (08:50→22:10)
[2023-04-06] MEDS: vancomycin 750 MG in sodium chloride 0.9% 250 ML 250 MG IV (09:13)
[2023-04-06] MEDS: insulin glargine 100 units/1 mL 10 UNIT SUBCUT (09:14)
[2023-04-06 09:42] LABS: Glucose Point of Care 195 mg/dL (70-110)
--- NOTE | 2023-04-06 09:47 | PC.SOCIAL ---
IMM update IMM updated with patient. Copy Pg 2 provided. Verbalized an understanding. Initialled, dated, timed, and placed in chart.
[2023-04-06 10:57] LABS: Glucose Point of Care 206 mg/dL (70-110)
[2023-04-06] MEDS: insulin lispro 100 unit/1 mL SUBCUT ×2 (10:57→15:51)
--- NOTE | 2023-04-06 11:08 | P.PN_ITS ---
Subjective Subjective: Mouth feels dry. No other additional new symptoms. Discussed with her at this time unable to resume oral intake due to severe dysphagia, risk of aspiration. She states that in case dysphagia was not improving she would not want a feeding tube under any circumstances. Would prefer to rather go on hospice and proceed to pleasure feeds/end-of-life care. She additionally has not been wanting to go to jail, she states that she feels there is someone (friend of family) they could hire to stay with her at all times. Discussed with her she cannot be left alone at this time and requires continuous supervision/care. Vitals/I&O/Wt Last Vital Signs Temp 98.1 F 04/06/23 03:10 Pulse 84 04/06/23 09:22 Resp 20 H 04/06/23 09:22 BP 135/63 04/06/23 04:00 Pulse Ox 97 04/06/23 09:22 O2 Del Method Room Air 04/06/23 09:22 O2 Flow Rate 2 04/05/23 21:58 04/05/23 04/06/23 04/06/23 22:59 06:59 14:59 Intake Total 1084.692 / 2209.849 1940.497 / 4150.346 1270.585 / 1270.585 Output Total 900 / 900 1200 / 2100 Balance 184.692 / 1309.849 740.497 / 2050.346 1270.585 / 1270.585 Weight last 48 hrs Weight 73.936 kg Weight 65.317 kg Physical Exam Const: COMMON NORMALS: alert GENERAL APPEARANCE: cooperative ORIENTATION/CONSCIOUSNESS: Yes awake OTHER: Generally weak. HENMT: COMMON NORMALS: oropharynx normal OTHER: Dry MM Neck/C-Spine: COMMON NORMALS: no JVD Resp: COMMON NORMALS: normal respiratory effort and clear to auscultation bilaterally AUSCULTATION: clear to auscultation bilaterally Cardio: COMMON NORMALS: no JVD, regular rhythm, S1 normal heart sound present, S2 normal heart sound present and No murmurs present (Cardio) RHYTHM: regular rhythm HEART SOUNDS: S1 normal heart sound present and S2 normal heart sound present GI: COMMON NORMALS: Normal to inspection, nondistended, normoactive bowel sounds present, Soft to palpation and non-tender PALPATION: Yes Soft to palpation Extremity: COMMON NORMALS: no joint enlargement and no pedal edema Neuro: SENSORIUM/ORIENTATION: Yes alert OTHER: Left-sided hemiplegia. Left-sided facial droop. Dysarthria. Aphonia. Sensation present on the left. Unable to tell if sensory neglect on exam. Skin: COMMON NORMALS: no rashes or lesions noted GENERAL SKIN EXAM: no rashes or lesions noted Urinary Catheter Management: Hall: Cath Placed During This Visit: yes Reason for Continuing Indwelling Catheter: Accurate Measurement of Urinary Output in Critically Ill Patients Urinary Catheter Date of Insertion: 04/03/23 Urinary Catheter Time of Insertion: 17:05 Data 04/06/23 04:29 04/06/23 05:33 A&P Assessment and plan (1) Acute right MCA stroke: 82-year-old female with history of hypertension hyperlipidemia diabetes atrial fibrillation on Eliquis depression was transferred from [facility] after she presented with left-sided facial weakness upper and lower extremity paralysis and CT consistent with right MCA stroke. Plan Discussed her condition, as well as some of our discussion and and with her sister. Metabolic acidosis: Diabetic ketoacidosis, with normal glycemia. Treated with insulin drip, dextrose infusion, electrolyte replacement. Reviewed chemistry, electrolytes, Phos, mag, potassium. Give K-Phos this morning. We will recheck chemistry, electrolytes this afternoon. Noted gap closed, bicarb improving, transition to subcutaneous insulin. Discontinue insulin drip. For now continue low rate dextrose infusion, D5-0.45, decreased to 75/h as currently without oral intake. Follow-up chemistry. Started on Lantus 10 units, sliding scale insulin. Follow-up Accu-Cheks. Some component of hyperchloremic metabolic acidosis. Very poor peripheral access: Had multiple sticks with possible blood draws, discussed with her possible risks with PICC/midline. Placed 04/05. A-fib with RVR, heart rate better, down to 80-90s. Stop Cardizem. Use metoprolol as needed injections in case heart rates increasing while unable to take oral intake. Heparin drip. Right MCA CVA: Still severe dysphagia, has been unable to resume oral intake. Continue follow-up with speech therapy. Continue n.p.o. at this time. Continue heparin drip. At risk of stroke from atrial fibrillation. Risk of bleeding following CVA, hemorrhagic transformation. Once resumes enteric intake add statin. still at risk of MCA stroke related complications. Discussed with her consideration that may not be able to resume oral intake safely in the near future, discussed risk of dehydration, malnutrition, inability to take medications, she is clear that she would not want a feeding tube under any circumstances even if it means that she be dying much sooner, even if it means transition to hospice/end-of-life care. Discussed with her family, discussed with case management. Continue reassessment of recovery, goals of care discussions. COVID PCR results reviewed, negative. Currently continue permissive hypertension, heart rates are now better with Card izem drip. Decrease rate. At risk of aspiration. For now continue empiric antibiotic coverage with Zosyn, vancomycin. Reassess. We will need control of risk factors for stroke going forward, reviewed A1c, discussed with her sister. Will need statin to be escalated to high-dose, atorvastatin or Crestor to be continued at discharge. Discussed antiplatelet with neurology, for now given she has been consistent with taking her Eliquis, even just anticoagulation but taking consistently would be preferable, for now hold off on addition of antiplatelet. Continue PT, OT, ST. Goals of care discussion: As above. Additionally currently requiring complete support, would not be able to return home independently, but states does not want to go to jail. Discussed that return home could be possible only if she had 24-hour care at home, which she feels could possibly be arranged by hiring help and she seems to have someone in mind. Discussed with case management. Continue to explore plans for safe discharge. Additionally discharge will be affected by whether she is able to resume oral intake, declining feeding tube, possibly in that case transitioning to hospice/end-of-life care. Risks of complication, cerebral edema, seizures, other complications following MCA territory CVA. Continue to monitor. Once in better shape consider additional assessment by MRI, follow-up with neur ology. CTA results appreciated. Monitor oxygenation, Improving, weaned off oxygen. Attestations Medical Necessity Statement*: Continue admission for assessment management of DKA, A-fib with RVR, while marnie ble to resume oral intake due to severe dysphagia following an MCA territory CVA Critical Care Time: 20 min Diagnoses Acute right MCA stroke I63.511
[2023-04-06] MEDS: dextrose 5%-sod chloride 0.45% 1,000 ML 75 ML IV (12:52)
[2023-04-06 14:39] LABS: Partial Thromboplastin Time 56.2 SECONDS (23.9-36.7)
[2023-04-06 14:53] LABS: Methicillin-Resist S.aureu PCR NOT DETECTED (NOT DETECTED)
[2023-04-06 15:50] LABS: Glucose Point of Care 196 mg/dL (70-110)
[2023-04-06] MEDS: heparin drip 25,000 UNIT/500 ML PREMIX 20 UNIT IV (17:06)
[2023-04-06 17:19] LABS: Glucose Point of Care 158 mg/dL (70-110)
[2023-04-06 21:02] LABS: Partial Thromboplastin Time 59.9 SECONDS (23.9-36.7)
[2023-04-06 22:05] LABS: Glucose Point of Care 137 mg/dL (70-110)
[2023-04-07] VITALS (51 sets, daily range): BP systolic 101–171; BP diastolic 59–120; PULSE 83–120; RESP 18–32; TEMP 36.6–37.5; O2SAT 93–97
[2023-04-07] MEDS: piperacillin-tazobactam 3.375 GM in sodium chloride 0.9% (plus) 50 ML IV ×4 (00:34→23:45)
[2023-04-07] MEDS: dextrose 5%-sod chloride 0.45% 1,000 ML 75 ML IV ×2 (02:35→15:56)
[2023-04-07 02:44] LABS: Glucose Point of Care 200 mg/dL (70-110)
[2023-04-07] MEDS: insulin lispro 100 unit/1 mL SUBCUT ×4 (03:09→20:28)
[2023-04-07 03:19] LABS: Partial Thromboplastin Time 57.7 SECONDS (23.9-36.7)
[2023-04-07 04:22] LABS: Basophils % 0.2 %; Eosinophils % 0.4 %; Hematocrit 36.9 % (36-47); Lymphocytes % 19.3 %; Mean Corpuscular HGB Conc 33.1 g/dL (30-55); Mean Corpuscular Hemoglobin 30.2 pg (27-33); Mean Corpuscular Volume 91.3 fl (85-98); Monocytes # 0.6 10^3/uL (0.2-0.9); Monocytes % 5.7 %; Neutrophils # 7.79 10^3/uL (1.8-7.7); Neutrophils % 73.8 %; Nucleated Red Blood Cells % 0 %; Platelet Count 159 10^3/cmm (157-399); Red Blood Count 4.04 10^6/uL (3.85-5.65); Red Cell Distribution Width 13.9 % (12.1-15.1); White Blood Count 10.54 10^3/uL (3.29-11.43)
[2023-04-07 04:40] LABS: Blood Urea Nitrogen 14 mg/dL (8-23); Calcium 7.9 mg/dL (8.5-10.5); Carbon Dioxide 19 mmol/L (22-29); Chloride 113 mmol/L (98-107); Glucose 160 mg/dL (65-115); Osmolality Calculated 296 mOsm/kg (285-295); Sodium 141 mmol/L (136-145)
[2023-04-07 04:43] LABS: Anion Gap 12.2 (5-19); Potassium 3.2 mmol/L (3.5-5.1)
[2023-04-07] MEDS: insulin glargine 100 units/1 mL 10 UNIT SUBCUT (06:09)
[2023-04-07 07:29] LABS: Glucose Point of Care 142 mg/dL (70-110)
[2023-04-07] MEDS: pantoprazole 40 mg SDV IVP ×2 (08:06→20:26)
[2023-04-07 08:54] LABS: Partial Thromboplastin Time 56.3 SECONDS (23.9-36.7)
[2023-04-07 09:02] LABS: Vancomycin Trough 5.3 ug/mL (10-15)
[2023-04-07] MEDS: vancomycin 1,000 MG in sodium chloride 0.9% 250 ML 250 MG IV (09:26)
[2023-04-07 11:41] LABS: Glucose Point of Care 137 mg/dL (70-110)
[2023-04-07 15:15] LABS: Partial Thromboplastin Time 52.2 SECONDS (23.9-36.7)
[2023-04-07 15:20] LABS: Glucose Point of Care 164 mg/dL (70-110)
[2023-04-07 16:24] LABS: Glucose Point of Care 187 mg/dL (70-110)
[2023-04-07] MEDS: ondansetron 2 mg/ML SDV 2 mL 4 MG IVP ×2 (16:33→20:27)
[2023-04-07] MEDS: metoprolol tartrate 1 mg/1 mL SDV 5 mL 2.5 MG IVP ×2 (16:35→20:23)
[2023-04-07 17:42] LABS: Glucose Point of Care 138 mg/dL (70-110)
[2023-04-07] MEDS: heparin drip 25,000 UNIT/500 ML PREMIX 20 UNIT IV (18:12)
--- NOTE | 2023-04-07 18:14 | P.PN_ITS ---
Subjective Subjective: Denies new symptoms. He is feeling somewhat cold. Otherwise no pain or discomfort. No headache. Some nausea in the afternoon. She is again adamant she would not want feeding tube during goals of care discussion with her as well as her visiting sister and [id number]. Requests for a wet sponge/swab. Vitals/I&O/Wt Last Vital Signs Temp 99.5 F 04/07/23 16:00 Pulse 106 H 04/07/23 16:45 Resp 25 H 04/07/23 16:45 BP 137/65 04/07/23 16:45 Pulse Ox 94 04/07/23 16:45 O2 Del Method Room Air 04/07/23 16:45 O2 Flow Rate 6 04/07/23 09:45 04/07/23 04/07/23 04/07/23 06:59 14:59 22:59 Intake Total 1000 / 2902.6733 350 / 350 1000 / 1350 Output Total 1000 / 1900 800 / 800 1700 / 2500 Balance 0 / 1002.6733 -450 / -450 -700 / -1150 Weight last 48 hrs Weight 73.227 kg Weight 73.936 kg Physical Exam Const: COMMON NORMALS: alert GENERAL APPEARANCE: cooperative ORIENTATION/CONSCIOUSNESS: Yes awake OTHER: Generally weak. HENMT: COMMON NORMALS: oropharynx normal OTHER: Dry MM Neck/C-Spine: COMMON NORMALS: no JVD Resp: COMMON NORMALS: normal respiratory effort and clear to auscultation bilaterally AUSCULTATION: clear to auscultation bilaterally Cardio: COMMON NORMALS: no JVD, regular rhythm, S1 normal heart sound present, S2 normal heart sound present and No murmurs present (Cardio) RHYTHM: regular rhythm HEART SOUNDS: S1 normal heart sound present and S2 normal heart sound present GI: COMMON NORMALS: Normal to inspection, nondistended, normoactive bowel sounds present, Soft to palpation and non-tender PALPATION: Yes Soft to palpation Extremity: COMMON NORMALS: no joint enlargement and no pedal edema Neuro: SENSORIUM/ORIENTATION: Yes alert OTHER: Left-sided hemiplegia. Left-sided facial droop. Dysarthria. Aphonia. Sensation present on the left. Unable to tell if sensory neglect on exam. Skin: COMMON NORMALS: no rashes or lesions noted GENERAL SKIN EXAM: no rashes or lesions noted Urinary Catheter Management: Hall: Cath Placed During This Visit: yes Reason for Continuing Indwelling Catheter: Accurate Measurement of Urinary Output in Critically Ill Patients Urinary Catheter Date of Insertion: 04/03/23 Urinary Catheter Time of Insertion: 17:05 Data 04/07/23 03:56 04/07/23 03:56 A&P Assessment and plan (1) Acute right MCA stroke: 82-year-old female with history of hypertension hyperlipidemia diabetes atrial fibrillation on Eliquis depression was transferred from [facility] after she presented with left-sided facial weakness upper and lower extremity paralysis and CT consistent with right MCA stroke. Plan Right MCA CVA: Still dysphagia. Received by speech therapy today, discussed with speech therapy, did slightly better today. No cough with pudding or moderately thickened liquids. As she has been quite adamant to try to start some oral intake even with risks of severe aspiration, will start her on some liquids for now with moderately thickened consistency, aspiration precautions. Cannot rule out silent aspiration, consider evaluation with [facility] on Monday. At current time continue heparin drip. Will not yet switch to DOAC. At risk of stroke from atrial fibrillation. Risk of bleeding following CVA, hemorrhagic transformation. Once resumes enteric intake add statin. still at risk of MCA stroke related complications. She is still adamant about not having feeding tube. Discussed with her consideration that may not be able to resume oral intake safely in the near future, discussed risk of dehydration, malnutrition, inability to take medications, she is clear that she would not want a feeding tube under any circumstances even if it means that she be dying much sooner, even if it means transition to hospice/end-of-life care. Discussed with her family, discussed with case management. Continue reassessment of recovery, goals of care discussions. COVID PCR results reviewed, negative. Currently continue permissive hypertension, heart rates are now better with Cardizem drip. Decrease rate. At risk of aspiration. For now continue empiric antibiotic coverage with Zosyn, vancomycin. Reassess. We will need control of risk factors for stroke going forward, reviewed A1c, discussed with her sister. Will need statin to be escalated to high-dose, atorvastatin or Crestor to be continued at discharge. Discussed antiplatelet with neurology, for now given she has been consistent with taking her Eliquis, even just anticoagulation but taking consistently would be preferable, for now hold off on addition of antiplatelet. Continue PT, OT, ST. Goals of care discussion: She is still adamant about not having feeding tube. Appears to be doing slightly better with regards to dysphagia. Still at risk of aspiration. We will trial some moderately thickened liquids for now. Further considerations with regards to disposition, she still has been trying to set up return home, her, discussion with her sister and [id number], she had mentioned caregiver, they are not aware of her having one. Discussing with her friend Lashon Rojas with case management -friend unable to accommodate to take care of her needs at current time. Continue discussions, arrangements for SNF. Consideration of skilled versus hospice discussed with her as well as sister and [id number] during their visit today depending on further recovery and ability to tolerate oral intake. Indicate also she would not want CPR in case of cardiopulmonary arrest. Addressed CODE STATUS. Metabolic acidosis: Diabetic ketoacidosis, with normal glycemia. Resolved. Accu-Cheks reviewed. Glucose close to target. Chemistry reviewed. Gap closed. Bicarb improving up to 19. Acidosis resolving. Lantus 10 units, sliding scale insulin. Follow-up Accu-Cheks. Some component of hyperchloremic metabolic acidosis. Very poor peripheral access: PICC/midline. Placed 04/05. A-fib with RVR: At risk of potentially life-threatening arrhythmia with atrial fibrillation, hypotension, leading to hypoperfusion with MCA territory CVA, this morning A-fib with RVR, unable to tolerate oral medications. Given dose of IV metoprolol 5 mg. Heart rate still reaching in 200s, currently unable to tolerate oral medications. Will start on 2.5 mg metoprolol IV every 4 hours. Use metoprolol as needed injections in case heart rates increasing while unable to take oral intake. Heparin drip. Risks of complication, cerebral edema, seizures, other complications following MCA territory CVA. Continue to monitor. Once in better shape consider additional assessment by MRI, follow-up with neuro logy. CTA results appreciated. Monitor oxygenation, Improving, weaned off oxygen. Attestations Medical Necessity Statement*: Continue admission for assessment of right MCA territory CVA, severe dysphagia, optimization of control of A-fib with RVR, unable to take medications enterically at this time, optimization of control of hyperglycemia following DKA, goals of care determination and postdischarge planning and arrangements. Diagnoses Acute right MCA stroke I63.511
[2023-04-07 20:23] LABS: Glucose Point of Care 187 mg/dL (70-110)
[2023-04-07 21:45] LABS: Partial Thromboplastin Time 63.3 SECONDS (23.9-36.7)
[2023-04-08] VITALS (17 sets, daily range): BP systolic 131–169; BP diastolic 75–107; PULSE 88–109; RESP 16–28; TEMP 36.1–37.1; O2SAT 91–96
[2023-04-08] MEDS: metoprolol tartrate 1 mg/1 mL SDV 5 mL 2.5 MG IVP ×7 (00:12→23:45)
[2023-04-08] MEDS: ondansetron 2 mg/ML SDV 2 mL 4 MG IVP ×2 (00:12→18:37)
[2023-04-08 03:26] LABS: Basophils % 0.3 %; Eosinophils # 0.1 10^3/uL (0.0-0.8); Eosinophils % 1.4 %; Hematocrit 39.3 % (36-47); Lymphocytes # 1.9 10^3/uL (0.8-4.8); Lymphocytes % 18.6 %; Mean Corpuscular HGB Conc 33.6 g/dL (30-55); Mean Corpuscular Hemoglobin 30.3 pg (27-33); Mean Corpuscular Volume 90.3 fl (85-98); Mean Platelet Volume 12.7 fL (7.4-10.4); Monocytes # 0.8 10^3/uL (0.2-0.9); Monocytes % 8.3 %; Neutrophils # 7.03 10^3/uL (1.8-7.7); Neutrophils % 70.7 %; Nucleated Red Blood Cells % 0 %; Platelet Count 191 10^3/cmm (157-399); Red Blood Count 4.35 10^6/uL (3.85-5.65); Red Cell Distribution Width 13.6 % (12.1-15.1); White Blood Count 9.95 10^3/uL (3.29-11.43)
[2023-04-08 03:36] LABS: Partial Thromboplastin Time 36.7 SECONDS (23.9-36.7)
[2023-04-08 03:45] LABS: Anion Gap 10.6 (5-19); Blood Urea Nitrogen 10 mg/dL (8-23); Carbon Dioxide 24 mmol/L (22-29); Chloride 109 mmol/L (98-107); Glucose 162 mg/dL (65-115); Magnesium 1.9 mg/dL (1.7-2.3); Osmolality Calculated 295 mOsm/kg (285-295); Phosphorus 1.6 mg/dL (2.5-4.5); Sodium 141 mmol/L (136-145)
[2023-04-08 03:48] LABS: Potassium 2.6 mmol/L (3.5-5.1)
[2023-04-08] MEDS: insulin lispro 100 unit/1 mL SUBCUT ×3 (04:01→22:13)
[2023-04-08] MEDS: vancomycin 1,000 MG in sodium chloride 0.9% 250 ML 250 MG IV ×2 (04:01→21:40)
[2023-04-08] MEDS: heparin 5,000 unit/mL INJ 1 mL IV (04:02)
[2023-04-08] MEDS: potassium chloride premix 100 ML 25 MEQ IV ×3 (04:21→17:50)
[2023-04-08] MEDS: dextrose 5%-sod chloride 0.45% 1,000 ML 75 ML IV ×2 (05:27→18:42)
[2023-04-08 07:59] LABS: Glucose Point of Care 121 mg/dL (70-110)
[2023-04-08] MEDS: phosphorus 250 mg Tablet PO ×2 (09:08→17:50)
[2023-04-08] MEDS: pantoprazole 40 mg SDV IVP ×2 (09:08→19:58)
[2023-04-08] MEDS: piperacillin-tazobactam 3.375 GM in sodium chloride 0.9% (plus) 50 ML IV ×3 (09:09→23:43)
[2023-04-08] MEDS: insulin glargine 100 units/1 mL 10 UNIT SUBCUT (09:10)
--- NOTE | 2023-04-08 10:42 | PC.SOCIAL ---
IMM Updated Updated pt on IMM. No questions voiced. Provided pt a copy. Initialed, dated, & timed copy in chart.
[2023-04-08 11:00] LABS: Partial Thromboplastin Time 83.4 SECONDS (23.9-36.7)
--- NOTE | 2023-04-08 12:11 | PC.NURSE ---
Patient is transferred from ICU to CSU at 1210. Report given by AVERY Medina.
--- NOTE | 2023-04-08 13:55 | PM.PN ---
Vitals/I&O/Wt Last Vital Signs Temp 98.6 F 04/08/23 04:00 Pulse 107 H 04/08/23 11:00 Resp 23 H 04/08/23 11:00 BP 131/75 04/08/23 12:00 Pulse Ox 93 04/08/23 11:00 O2 Del Method Room Air 04/08/23 10:19 O2 Flow Rate 6 04/07/23 09:45 04/07/23 04/08/23 04/08/23 22:59 06:59 14:59 Intake Total 1550 / 1900 1597.667 / 3497.667 584.417 / 584.417 Output Total 1700 / 2500 1300 / 3800 1250 / 1250 Balance -150 / -600 297.667 / -302.333 -665.583 / -665.583 Weight last 48 hrs Weight 57.742 kg Weight 73.227 kg Physical Exam Const: COMMON NORMALS: alert GENERAL APPEARANCE: cooperative ORIENTATION/CONSCIOUSNESS: Yes awake OTHER: Generally weak. HENMT: COMMON NORMALS: oropharynx normal OTHER: Dry MM Neck/C-Spine: COMMON NORMALS: no JVD Resp: COMMON NORMALS: normal respiratory effort and clear to auscultation bilaterally AUSCULTATION: clear to auscultation bilaterally Cardio: COMMON NORMALS: no JVD, regular rhythm, S1 normal heart sound present, S2 normal heart sound present and No murmurs present (Cardio) RHYTHM: regular rhythm HEART SOUNDS: S1 normal heart sound present and S2 normal heart sound present GI: COMMON NORMALS: Normal to inspection, nondistended, normoactive bowel sounds present, Soft to palpation and non-tender PALPATION: Yes Soft to palpation Extremity: COMMON NORMALS: no joint enlargement and no pedal edema Neuro: SENSORIUM/ORIENTATION: Yes alert OTHER: Left-sided hemiplegia. Left-sided facial droop. Dysarthria. Aphonia. Sensation present on the left. Unable to tell if sensory neglect on exam. Skin: COMMON NORMALS: no rashes or lesions noted GENERAL SKIN EXAM: no rashes or lesions noted Urinary Catheter Management: Hall: Cath Placed During This Visit: yes Reason for Continuing Indwelling Catheter: Accurate Measurement of Urinary Output in Critically Ill Patients Urinary Catheter Date of Insertion: 04/03/23 Urinary Catheter Time of Insertion: 17:05 Data 04/08/23 02:44 04/08/23 02:44 A&P Assessment and plan (1) Acute right MCA stroke: 82-year-old female with history of hypertension hyperlipidemia diabetes atrial fibrillation on Eliquis depression was transferred from [facility] after she presented with left-sided facial weakness upper and lower extremity paralysis and CT consistent with right MCA stroke. Plan Right MCA CVA: So far tolerating thickened liquids. Continue speech therapy evaluation. Confirms would not want feeding tube. Discussed with case management. As she is requiring significant assistance unable to return home at this time, confirmed by her friend -she would not be able to provide sufficient care. Arrangements for half-way facility. Start atorvastatin now that she is tolerating some oral intake. Discussed with nursing, for now continue heparin drip. Will not yet switch to DOAC. At risk of stroke from atrial fibrillation. Risk of bleeding following CVA, hemorrhagic transformation. Once resumes enteric intake add statin. still at risk of MCA stroke related complications. Continue aspiration precautions. Concern for concomitant aspiration pneumonitis/pneumonia, oxygenation has improved. Wean down to room air. For now continue empiric antibiotic coverage with Zosyn, vancomycin. Reassess. Will check procalcitonin. We will need control of risk factors for stroke going forward, reviewed A1c, discussed with her sister. Will need statin to be escalated to high-dose, atorvastatin or Crestor to be continued at discharge. Discussed antiplatelet with neurology, for now given she has been consistent with taking her Eliquis, even just anticoagulation but taking consistently would be preferable, for now hold off on addition of antiplatelet. Continue PT, OT, ST. Goals of care discussion: Has been clear about not having feeding tube. Appears to be doing slightly better with regards to dysphagia. Still at risk of aspiration. We will trial some moderately thickened liquids for now. Indicate also she would not want CPR in case of cardiopulmonary arrest. Metabolic acidosis: Reviewed bicarb, anion gap, electrolytes. Noted hypokalemia. Hypophosphatemia. Diabetic ketoacidosis, with normal glycemia. Resolved. Accu-Cheks reviewed. Glucose close to target. Chemistry reviewed. Gap closed. Bicarb improving up to 19. Acidosis resolving. Lantus 10 units, sliding scale insulin. Follow-up Accu-Cheks. Some component of hyperchloremic metabolic acidosis. Hypokalemia: See report, recheck chemistry. Hypophosphatemia: Added replacement. Follow-up phosphorus level. Very poor peripheral access: PICC/midline. Placed 04/05. A-fib with RVR: Now that she is tolerating some oral intake and metoprolol 12.5 mg twice daily. If tolerating oral medications consistently will uptitrate oral metoprolol and stop IV metoprolol. At risk of potentially life-threatening arrhythmia with atrial fibrillation, hypotension, leading to hypoperfusion with MCA territory CVA, this morning A-fib with RVR, unable to tolerate oral medications. Given dose of IV metoprolol 5 mg. Heart rate still reaching in 200s, currently unable to tolerate oral medications. Heparin drip. Risks of complication, cerebral edema, seizures, other complications following MCA territory CVA. Continue to monitor. Once in better shape consider additional assessment by MRI, follow-up with neurology. CTA results appreciated. Monitor oxygenation, Improving, weaned off oxygen. Attestations Medical Necessity Statement*: Continue admission for assessment management following MCA CVA, dysphagia, electrolyte replacement, optimization of control of A-fib with RVR, Diagnoses Acute right MCA stroke I63.511
[2023-04-08 16:51] LABS: Glucose Point of Care 217 mg/dL (70-110)
[2023-04-08 17:08] LABS: Partial Thromboplastin Time 60.3 SECONDS (23.9-36.7)
--- NOTE | 2023-04-08 17:44 | PC.NURSE ---
Patients PTT is 60.3. No change in heparin drip.
[2023-04-08] MEDS: metoprolol tartrate 25 mg Tablet 12.5 MG PO (21:39)
[2023-04-08] MEDS: atorvastatin 40 mg Tablet PO (21:40)
[2023-04-08 22:05] LABS: Glucose Point of Care 239 mg/dL (70-110)
[2023-04-08] MEDS: heparin drip 25,000 UNIT/500 ML PREMIX 21.4 UNIT IV (23:41)
[2023-04-09] VITALS (12 sets, daily range): BP systolic 125–167; BP diastolic 64–97; PULSE 56–99; RESP 16–22; TEMP 37.2–37.5; O2SAT 93–96
[2023-04-09 03:24] LABS: Glucose Point of Care 99 mg/dL (70-110)
[2023-04-09 04:40] LABS: Basophils % 0.3 %; Eosinophils # 0.3 10^3/uL (0.0-0.8); Hematocrit 34.3 % (36-47); Lymphocytes # 1.8 10^3/uL (0.8-4.8); Lymphocytes % 18.3 %; Mean Corpuscular HGB Conc 33.5 g/dL (30-55); Mean Corpuscular Hemoglobin 30.7 pg (27-33); Mean Corpuscular Volume 91.5 fl (85-98); Mean Platelet Volume 12.5 fL (7.4-10.4); Monocytes # 0.9 10^3/uL (0.2-0.9); Monocytes % 8.7 %; Neutrophils # 6.87 10^3/uL (1.8-7.7); Neutrophils % 68.9 %; Nucleated Red Blood Cells % 0 %; Platelet Count 183 10^3/cmm (157-399); Red Blood Count 3.75 10^6/uL (3.85-5.65); Red Cell Distribution Width 13.7 % (12.1-15.1); White Blood Count 9.97 10^3/uL (3.29-11.43)
[2023-04-09 04:56] LABS: Partial Thromboplastin Time 54.1 SECONDS (23.9-36.7)
[2023-04-09 05:01] LABS: Magnesium 1.8 mg/dL (1.7-2.3); Phosphorus 2.7 mg/dL (2.5-4.5)
[2023-04-09 05:02] LABS: Anion Gap 11.1 (5-19); Blood Urea Nitrogen 7 mg/dL (8-23); Carbon Dioxide 24 mmol/L (22-29); Chloride 110 mmol/L (98-107); Creatinine Clr Calc Pharmacy 46.2815; Glucose 124 mg/dL (65-115); Osmolality Calculated 293 mOsm/kg (285-295); Potassium 3.1 mmol/L (3.5-5.1); Sodium 142 mmol/L (136-145)
[2023-04-09] MEDS: metoprolol tartrate 1 mg/1 mL SDV 5 mL 2.5 MG IVP ×2 (05:05→08:58)
[2023-04-09 05:07] LABS: Procalcitonin 0.52 ng/mL (0-0.5)
[2023-04-09] MEDS: lidocaine 1% 5 ML in potassium chloride premix 100 ML 25 ML IV (06:12)
[2023-04-09] MEDS: insulin glargine 100 units/1 mL 10 UNIT SUBCUT (07:16)
[2023-04-09] MEDS: pantoprazole 40 mg SDV IVP ×2 (08:57→20:59)
[2023-04-09] MEDS: piperacillin-tazobactam 3.375 GM in sodium chloride 0.9% (plus) 50 ML IV ×3 (08:58→23:36)
[2023-04-09 09:23] LABS: Glucose Point of Care 177 mg/dL (70-110)
[2023-04-09] MEDS: insulin lispro 100 unit/1 mL SUBCUT ×2 (09:25→18:05)
[2023-04-09] MEDS: metoprolol tartrate 25 mg Tablet 12.5 MG PO (09:26)
[2023-04-09 11:42] LABS: Partial Thromboplastin Time 56.6 SECONDS (23.9-36.7)
--- NOTE | 2023-04-09 13:15 | P.PN_ITS ---
Subjective Subjective: She asked for some lemonade. Mouth still has been feeling dry. Vitals/I&O/Wt Last Vital Signs Temp 99.4 F 04/09/23 00:00 Pulse 65 04/09/23 10:25 Resp 20 H 04/09/23 10:25 BP 125/64 04/09/23 10:25 Pulse Ox 95 04/09/23 10:25 O2 Del Method Room Air 04/09/23 10:25 O2 Flow Rate 6 04/07/23 09:45 04/08/23 04/09/23 04/09/23 22:59 06:59 14:59 Intake Total 1822.916 / 2407.333 224.120 / 2631.453 1225 / 1225 Output Total 950 / 2200 1340 / 3540 Balance 872.916 / 207.333 -1115.880 / -385.612 4622 / 1225 Weight last 48 hrs Weight 72.4 kg Weight 57.742 kg Physical Exam Const: COMMON NORMALS: alert GENERAL APPEARANCE: cooperative ORIENTATION/CONSCIOUSNESS: Yes awake OTHER: Today she is stronger. Moving around in bed, positioning her leg, reposition her left arm with her right. HENMT: COMMON NORMALS: oropharynx normal Neck/C-Spine: COMMON NORMALS: no JVD Resp: COMMON NORMALS: normal respiratory effort and clear to auscultation bilaterally AUSCULTATION: clear to auscultation bilaterally Cardio: COMMON NORMALS: no JVD, regular rhythm, S1 normal heart sound present, S2 normal heart sound present and No murmurs present (Cardio) RHYTHM: regular rhythm HEART SOUNDS: S1 normal heart sound present and S2 normal heart sound present GI: COMMON NORMALS: Normal to inspection, nondistended, normoactive bowel sounds present, Soft to palpation and non-tender PALPATION: Yes Soft to palpation Extremity: COMMON NORMALS: no joint enlargement and no pedal edema Neuro: SENSORIUM/ORIENTATION: Yes alert OTHER: Left-sided hemiplegia. Left-sided facial droop. Dysarthria. Aphonia. Sensation present on the left. Unable to tell if sensory neglect on exam. Skin: COMMON NORMALS: no rashes or lesions noted GENERAL SKIN EXAM: no rashes or lesions noted Urinary Catheter Management: Hall: Cath Placed During This Visit: yes Reason for Continuing Indwelling Catheter: Accurate Measurement of Urinary Output in Critically Ill Patients Urinary Catheter Date of Insertion: 04/03/23 Urinary Catheter Time of Insertion: 17:05 Data 04/09/23 04:13 04/09/23 04:13 A&P Assessment and plan (1) Acute right MCA stroke: 82-year-old female with history of hypertension hyperlipidemia diabetes atrial fibrillation on Eliquis depression was transferred from [facility] after she presented with left-sided facial weakness upper and lower extremity paralysis and CT consistent with right MCA stroke. Plan Right MCA CVA: Appears to be getting stronger, repositions her left arm with her right. Continue PT, OT. Continue dysphagia diet, aspiration precautions. Speech therapy follow-up. Case management notes reviewed, working on [facility]. At risk of aspiration, monitor for any signs of re-aspiration pneumonitis or pneumonia. Temp nine 9.4. Reviewed CBC, no leukocytosis. Oxygenating well on room air. Continue atorvastatin now that she is tolerating some oral intake. Discussed with nursing, for now continue heparin drip. Will not yet switch to DOAC. At risk of stroke from atrial fibrillation. Risk of bleeding following CVA, hemorrhagic transformation. Once resumes enteric intake add statin. still at risk of MCA stroke related complications. Hypokalemia: Reviewed potassium, noted low. Replace. Recheck chemistry. Repeat magnesium, noted 1.8, will give 1 g magnesium. Recheck magnesium level requested. Continue aspiration precautions. Concern for concomitant aspiration pneumonitis/pneumonia, oxygenation has improved. Reviewed procalcitonin, 0.52. Continue antibiotic for now. Aspiration precautions. Dysphagia diet. Wean down to room air. For now continue empiric antibiotic coverage with Zosyn, vancomycin. Reassess. We will need control of risk factors for stroke going forward, reviewed A1c, discussed with her sister. Will need statin to be escalated to high-dose, atorvastatin or Crestor to be continued at discharge. Discussed antiplatelet with neurology, for now given she has been consistent with taking her Eliquis, even just anticoagulation but taking consistently would be preferable, for now hold off on addition of antiplatelet. Continue PT, OT, ST. Goals of care discussion: Has been clear about not having feeding tube. Appears to be doing slightly better with regards to dysphagia. Still at risk of aspiration. We will trial some moderately thickened liquids for now. Indicate also she would not want CPR in case of cardiopulmonary arrest. Metabolic acidosis: Reviewed bicarb, anion gap, electrolytes. Noted hypokalemia. Hypophosphatemia. Diabetic ketoacidosis, with normal glycemia. Resolved. Accu-Cheks reviewed. Glucose close to target. Chemistry reviewed. Gap closed. Bicarb improving up to 19. Acidosis resolving. Lantus 10 units, sliding scale insulin. Follow-up Accu-Cheks. Some component of hyperchloremic metabolic acidosis. Hypophosphatemia: Phos reviewed. Has not been replaced. Follow-up level. Very poor peripheral access: PICC/midline. Placed 04/05. A-fib with RVR: Now that she is tolerating oral intake, increase oral metoprolol to 25 mg. Stop scheduled IV metoprolol. Monitor on telemetry. Heparin drip. Switch to Eliquis prior to discharge. At risk of potentially life-threatening arrhythmia with atrial fibrillation, hypotension, leading to hypoperfusion with MCA territory CVA, this morning A-fib with RVR, unable to tolerate oral medications. Risks of complication, cerebral edema, seizures, other complications following MCA territory CVA. Continue to monitor. Once in better shape consider additional assessment by MRI, follow-up with neurology. CTA results appreciated. Attestations Medical Necessity Statement*: Continue admission for assessment management following MCA CVA, dysphagia, electrolyte replacement, optimization of control of A-fib with RVR and High MDM includes described risk of complication, morbidity or mortality of management as documented Diagnoses Acute right MCA stroke I63.511
--- NOTE | 2023-04-09 13:35 | PC.NURSE ---
Provider okay to change patients accu-checks to with meals and at bedtime along with her Humalog.
--- NOTE | 2023-04-09 13:50 | PC.PT ---
Pt. stated she was nauseous and did not want to attempt therapy on 04/09/23.
[2023-04-09] MEDS: lactated ringers 1,000 ML 30 ML IV (13:57)
[2023-04-09] MEDS: magnesium sulfate premix 1 GM/100 ML PIGGYBACK IV (13:58)
[2023-04-09] MEDS: ondansetron 2 mg/ML SDV 2 mL 4 MG IVP (14:15)
[2023-04-09 15:13] LABS: Vancomycin Trough 9.1 ug/mL (10-15)
[2023-04-09 17:00] LABS: Glucose Point of Care 188 mg/dL (70-110)
[2023-04-09] MEDS: vancomycin 1,250 MG/250 ML PIGGYBACK 200 MG IV (18:06)
--- NOTE | 2023-04-09 19:18 | PC.NURSE ---
PTT at 1656 is 71.0, no change per heparin protocol.
[2023-04-09] MEDS: metoprolol tartrate 25 mg Tablet PO (21:02)
[2023-04-09] MEDS: atorvastatin 40 mg Tablet PO (21:02)
[2023-04-10] VITALS (14 sets, daily range): BP systolic 149–164; BP diastolic 67–108; PULSE 72–125; RESP 16–24; TEMP 37.2–38.3; O2SAT 91–97
[2023-04-10] MEDS: heparin drip 25,000 UNIT/500 ML PREMIX 22.4 UNIT IV (04:05)
[2023-04-10 04:25] LABS: Basophils % 0.4 %; Eosinophils # 0.4 10^3/uL (0.0-0.8); Eosinophils % 3.6 %; Hematocrit 34.4 % (36-47); Lymphocytes # 1.6 10^3/uL (0.8-4.8); Lymphocytes % 15.6 %; Mean Corpuscular HGB Conc 32.6 g/dL (30-55); Mean Corpuscular Hemoglobin 30.2 pg (27-33); Mean Corpuscular Volume 92.7 fl (85-98); Mean Platelet Volume 12.3 fL (7.4-10.4); Monocytes # 0.9 10^3/uL (0.2-0.9); Neutrophils # 7.28 10^3/uL (1.8-7.7); Neutrophils % 70.2 %; Nucleated Red Blood Cells % 0 %; Platelet Count 191 10^3/cmm (157-399); Red Blood Count 3.71 10^6/uL (3.85-5.65); Red Cell Distribution Width 13.8 % (12.1-15.1); White Blood Count 10.35 10^3/uL (3.29-11.43)
[2023-04-10 04:35] LABS: Phosphorus 2.8 mg/dL (2.5-4.5)
[2023-04-10 04:38] LABS: Partial Thromboplastin Time 69.1 SECONDS (23.9-36.7)
[2023-04-10 05:02] LABS: Anion Gap 12.4 (5-19); Blood Urea Nitrogen 8 mg/dL (8-23); Carbon Dioxide 23 mmol/L (22-29); Chloride 104 mmol/L (98-107); Glucose 213 mg/dL (65-115); Osmolality Calculated 287 mOsm/kg (285-295); Potassium 3.4 mmol/L (3.5-5.1); Sodium 136 mmol/L (136-145)
[2023-04-10] MEDS: insulin glargine 100 units/1 mL 10 UNIT SUBCUT (06:30)
[2023-04-10 06:39] LABS: Glucose Point of Care 169 mg/dL (70-110)
[2023-04-10] MEDS: vancomycin 1,250 MG/250 ML PIGGYBACK 200 MG IV (09:51)
[2023-04-10] MEDS: piperacillin-tazobactam 3.375 GM in sodium chloride 0.9% (plus) 50 ML IV ×3 (09:52→23:44)
[2023-04-10] MEDS: pantoprazole 40 mg SDV IVP ×2 (09:52→21:30)
[2023-04-10] MEDS: metoprolol tartrate 25 mg Tablet PO (09:53)
[2023-04-10] MEDS: insulin lispro 100 unit/1 mL SUBCUT ×4 (09:56→21:45)
--- NOTE | 2023-04-10 10:29 | PC.SOCIAL ---
IMM Update: Page 2 of IMM dated and reviewed with pt. Copy provided. Copy dated, initialed and placed in chart @ [id number]
[2023-04-10 11:29] LABS: Glucose Point of Care 165 mg/dL (70-110)
[2023-04-10] MEDS: ondansetron 2 mg/ML SDV 2 mL 4 MG IVP (13:31)
--- NOTE | 2023-04-10 14:05 | PM.PN ---
Subjective Subjective: Hospital course, labs appreciated. Today morning examination patient lying comfortably in bed on heparin drip with heart rate running in 70s, normal sinus rhythm going back and forth between normal sinus rhythm and A-fib with RVR. Patient otherwise remains comfortable. Patient as per the [facility] ate around 50 to 75% of the meal. Patient is not able to feed herself. Patient herself denies any nausea, vomiting, headache. Blood work appreciated for a stable CBC with a hemoglobin of 11.2, stable PT, CMP showing mild hypokalemia with potassium down to 3.4 Vitals/I&O/Wt Last Vital Signs Temp 99.0 F 04/10/23 07:28 Pulse 74 04/10/23 11:47 Resp 22 H 04/10/23 11:47 BP 164/86 04/10/23 11:47 Pulse Ox 92 04/10/23 11:47 O2 Del Method Room Air 04/10/23 11:47 O2 Flow Rate 6 04/07/23 09:45 04/09/23 04/10/23 04/10/23 22:59 06:59 14:59 Intake Total 1340.189 / 2835.189 50 / 2885.189 170 / 170 Output Total 675 / 675 425 / 1100 Balance 665.189 / 2160.189 -375 / 1785.189 170 / 170 Weight last 48 hrs Weight 75.807 kg Weight 72.4 kg Physical Exam Narrative: General: No acute distress, AO x3, able to communicate through my full voice and writing HEENT: PERRLA, pupils bilaterally equal and reactive Chest: Bilateral bronchial breath sounds with occasional rhonchi right more than left CVS: S1-S2 irregularly irregular, no murmurs, no tachycardia, no gallops, no rubs Abdomen: Soft, nontender, no organomegaly, bowel sounds present Neuro: No focal deficits, no facial deformity, AO x3, power 5/5 in all limbs Neuro: OTHER: Left-sided hemiplegia. Left-sided facial droop. Dysarthria. Aphonia. Sensation present on the left. Unable to tell if sensory neglect on exam. Urinary Catheter Management: Hall: Cath Placed During This Visit: yes Reason for Continuing Indwelling Catheter: Accurate Measurement of Urinary Output in Critically Ill Patients Urinary Catheter Date of Insertion: 04/03/23 Urinary Catheter Time of Insertion: 17:05 Data 04/10/23 03:55 04/10/23 03:55 A&P Assessment and plan (1) Acute right MCA stroke: (2) Chronic atrial fibrillation with RVR: (3) Diastolic heart failure: (4) Hypertension: (5) Hyperlipidemia: (6) Goals of care, counseling/discussion: Plan Right MCA CVA: Continue with PT/OT. Advance diet as per speech evaluation. Aspiration precautions. Concerns for thromboembolic stroke. Last echocardiogram from December 2022 showed an EF of 65% with grade 2 diastolic dysfunction. Appreciate A1c, check lipid panel in AM. Currently on heparin drip. We will switch to Eliquis from evening as per dosage criteria 5 mg twice daily. Continue atorvastatin 40 mg daily Atrial fibrillation with rapid ventricular response: Going back and forth between normal sinus rhythm and RVR. Increase dose of metoprolol to 50 mg twice daily Hypertension: Goal blood pressure less than 140/90 mmHg. Blood pressure is elevated. Metoprolol increased as above. Start on amlodipine 10 mg oral daily. Hypokalemia: Replace 40 mg oral. Check daily. Type 2 diabetes mellitus: A1c appreciated of 7.4. Takes OHA's at home. Given stroke, limited oral intake for now we will switch to insulin even on discharge. Goals of care discussion: Patient does not want a feeding tube. Risk of aspiration. Discussed discharge planning in detail. Options discussed were going home with caregiver versus SNF placement. We discussed that unfortunately patient has high acuity needs with her ADLs and feeding and it would be difficult for her to be taken care of at home with no family members at present other than patient's friend Ms. Oates. As per Ms. Otaes she would also not be able to take care of her completely at home and would benefit from SNF placement. Patient is agreeable. Discussed about further goals of care and quality of life. Patient states she has a poor quality of life currently and would want to go ahead with hospice care. Discussed that hospice would mean that we will continue the current treatment but if and when she gets sick the plan would be to maintain her comfortable without getting her back to the hospital and let nature takes its own course. Patient is agreeable. Plan to discharge to SNF with hospice Attestations Medical Necessity Statement*: Requires further hospitalization for initiation of hospice care in a patient with acute right MCA infarct, atrial fibrillation with RVR while safe discharge planning is sought Diagnoses Acute right MCA stroke I63.511 Chronic atrial fibrillation with RVR I48.20 Diastolic heart failure I50.30 Hypertension I10 Hyperlipidemia E78.5 Goals of care, counseling/discussion Z71.89
[2023-04-10 16:10] LABS: Glucose Point of Care 146 mg/dL (70-110)
[2023-04-10 16:10] LABS: Glucose Point of Care 127 mg/dL (70-110)
[2023-04-10] MEDS: amlodipine 10 mg Tablet PO (18:25)
[2023-04-10 20:43] LABS: Adenovirus Not Detected (NOT DETECT); Chlamydia Pneumoniae Not Detected (NOT DETECT); Coronavirus 229E,HKU1,NL63,OC4 Not Detected (NOT DETECT); Human Metapneumovirus Not Detected (NOT DETECT); Human Rhinovirus/Enterovirus Not Detected (NOT DETECT); Influenza A Not Detected (NOT DETECT); Influenza A H1 Not Detected (NOT DETECT); Influenza A H1-2009 Not Detected (NOT DETECT); Influenza A H3 Not Detected (NOT DETECT); Influenza B Not Detected (NOT DETECT); Mycoplasma Pneumoniae Not Detected (NOT DETECT); Parainfluenza Virus Type 1 Not Detected (NOT DETECT); Parainfluenza Virus Type 2 Not Detected (NOT DETECT); Parainfluenza Virus Type 3 Not Detected (NOT DETECT); Parainfluenza Virus Type 4 Not Detected (NOT DETECT); Respiratory Syncytial Virus A Not Detected (NOT DETECT); Respiratory Syncytial Virus B Not Detected (NOT DETECT); SARS-COV-2 Not Detected (NOT DETECT)
[2023-04-10] MEDS: metoprolol tartrate 1 mg/1 mL SDV 5 mL 5 MG IVP (20:59)
[2023-04-10 21:04] LABS: Glucose Point of Care 155 mg/dL (70-110)
[2023-04-10] MEDS: acetaminophen 1,000 MG/100 ML PIGGYBACK 400 MG IV (21:32)
[2023-04-10] MEDS: apixaban 5 mg Tablet PO (21:36)
[2023-04-10] MEDS: metoprolol tartrate 50 mg Tablet PO (21:36)
[2023-04-10] MEDS: atorvastatin 40 mg Tablet PO (21:36)
[2023-04-11] VITALS (8 sets, daily range): BP systolic 112–155; BP diastolic 66–83; PULSE 61–100; RESP 18–24; TEMP 36.6–37.7; O2SAT 92–95
[2023-04-11] MEDS: metoprolol tartrate 1 mg/1 mL SDV 5 mL 5 MG IVP (00:35)
[2023-04-11 00:53] LABS: Add Urine Microscopic? NO; Charge for UA Resulting for Rev
[2023-04-11 01:00] LABS: Bilirubin Urine Neg (Negative); Blood Urine Neg (Negative); Glucose Urine UA Norm (Normal); Ketones Urine Negative (Negative); Leukocyte Esterase Urine Negative (Negative); Nitrate Urine Negative (Negative); Protein Urine Neg (Negative); Urine Appearance Clear (CLEAR); Urine Color Colorless (Yellow); Urobilinogen Urine Neg (Negative); pH Urine 6 (5-7)
[2023-04-11] MEDS: vancomycin 1,250 MG/250 ML PIGGYBACK 200 MG IV (03:29)
[2023-04-11 04:38] LABS: Basophils % 0.5 %; Eosinophils # 0.2 10^3/uL (0.0-0.8); Eosinophils % 2.5 %; Hematocrit 34.9 % (36-47); Lymphocytes # 1.8 10^3/uL (0.8-4.8); Lymphocytes % 21.2 %; Mean Corpuscular HGB Conc 33.2 g/dL (30-55); Mean Corpuscular Hemoglobin 30.6 pg (27-33); Mean Corpuscular Volume 92.1 fl (85-98); Mean Platelet Volume 11.8 fL (7.4-10.4); Monocytes # 1.1 10^3/uL (0.2-0.9); Monocytes % 12.6 %; Neutrophils # 5.25 10^3/uL (1.8-7.7); Nucleated Red Blood Cells % 0 %; Platelet Count 227 10^3/cmm (157-399); Red Blood Count 3.79 10^6/uL (3.85-5.65); Red Cell Distribution Width 13.7 % (12.1-15.1); White Blood Count 8.46 10^3/uL (3.29-11.43)
[2023-04-11 05:01] LABS: Alanine Aminotransferase 11 U/L (0-33); Albumin Level 2.7 g/dL (3.5-5.2); Alkaline Phosphatase 54 U/L (35-105); Anion Gap 11.3 (5-19); Aspartate Amino Transferase 14 U/L (0-32); Blood Urea Nitrogen 6 mg/dL (8-23); Calcium 8.3 mg/dL (8.5-10.5); Carbon Dioxide 27 mmol/L (22-29); Chloride 106 mmol/L (98-107); Globulin 2.7 g/dL (1.3-4.6); Glucose 121 mg/dL (65-115); Osmolality Calculated 291 mOsm/kg (285-295); Potassium 3.3 mmol/L (3.5-5.1); Sodium 141 mmol/L (136-145); Total Bilirubin 0.7 mg/dL (0.15-1.2); Total Protein 5.4 g/dL (6.6-8.7)
[2023-04-11 05:06] LABS: Magnesium 1.8 mg/dL (1.7-2.3); Phosphorus 3.4 mg/dL (2.5-4.5)
[2023-04-11] MEDS: insulin glargine 100 units/1 mL 10 UNIT SUBCUT (06:05)
[2023-04-11 07:21] LABS: Glucose Point of Care 145 mg/dL (70-110)
[2023-04-11] MEDS: amlodipine 10 mg Tablet PO (08:28)
[2023-04-11] MEDS: metoprolol tartrate 50 mg Tablet PO (08:28)
[2023-04-11] MEDS: insulin lispro 100 unit/1 mL SUBCUT ×2 (08:29→17:14)
[2023-04-11] MEDS: apixaban 5 mg Tablet PO (08:29)
[2023-04-11] MEDS: piperacillin-tazobactam 3.375 GM in sodium chloride 0.9% (plus) 50 ML IV (08:30)
[2023-04-11] MEDS: pantoprazole 40 mg SDV IVP (08:33)
[2023-04-11] MEDS: ondansetron 2 mg/ML SDV 2 mL 4 MG IVP (10:32)
[2023-04-11 12:18] LABS: Glucose Point of Care 134 mg/dL (70-110)
--- NOTE | 2023-04-11 12:48 | PM.DCS ---
Discharge Providers Date of Admission: 04/03/23 20:42 Date of Discharge: April 11, 2023 Attending Provider at Admission: Darleen Guy MD Attending Provider at Discharge: Abelardo Bennett MD Consults: Neurology: Dr. Grove Primary Care Provider: Roseline Salazar Diagnoses at Discharge Discharge Diagnosis (1) Acute right MCA stroke: Status: Acute (2) Chronic atrial fibrillation with RVR: Status: Acute (3) Diastolic heart failure: Status: Acute (4) Hypertension: Status: Acute (5) Hyperlipidemia: Status: Acute (6) Goals of care, counseling/discussion: Status: Acute Reason for Visit Reason for Visit: FALL Brief History: History as per HPI: Monalisa Moore is a 82 year old female with a history of type 2 diabetes mellitus, irregular heart rate and hypertension.? According to the bander and cellophaner machine, she last spoke to the patient around 11 PM on 04/02/2023.? On the morning of 04/03/2023 the bander and cellophaner machine stated that she found the patient down with paralysis of the left arm and left leg.? The patient was brought to [facility] emergency room.? The patient was well out of the 4-1/2-hour window.? Therefore the patient was not a candidate for tPA.? Noncontrast head CT scan was obtained and was reported to reveal decreased attenuation in the right frontal/temporal area extending into the insula with slight mass effect.? Findings suggestive of subacute infarction.? On clinical examination, the patient NIH score equals 12.? Patient's examination revealed left lower facial weakness, paralysis of the left arm and left leg, neglect involving the left side of her body and right gaze preference. Hospital Course Hospital Course Patient was admitted to the hospital further evaluation and management of significant right MCA stroke. He was seen by neurology. Admitted with telemetry. She was found to have multiple episodes of atrial fibrillation with rapid ventricular response for which her home dose of metoprolol was changed and increased. Her hospitalization was complicated by patient developing aspiration pneumonia for which she has been treated with IV antibiotics. She was seen by various therapies including speech therapy and her diet was changed accordingly. Currently patient is safely consuming full liquid diet. Due to significant disability from right MCA stroke goals of care discussions were done in detail with the patient. She declined feeding tube for nutrition. CODE STATUS was changed to limited resuscitation to no CPR. Safe discharge planning was discussed in detail with the patient. Options discussed were going home with caregiver versus SNF placement.? We discussed that unfortunately patient has high acuity needs with her ADLs and feeding and it would be difficult for her to be taken care of at home with no family members at present other than patient's friend Ms. Oates.? As per Ms. Oates she would also not be able to take care of her completely at home and would benefit from SNF placement.? Patient is agreeable.? Discussed about further goals of care and quality of life.? Patient states she has a poor quality of life currently and would want to go ahead with hospice care.? Discussed that hospice would mean that we will continue the current treatment but if and when she gets sick the plan would be to maintain her comfortable without getting her back to the hospital and let nature takes its own course.? Patient was agreeable for hospice care. She has been discharged to SNF with hospice care. Physical Exam Narrative: General: No acute distress, AO x3, able to communicate through my full voice and writing HEENT: PERRLA, pupils bilaterally equal and reactive Chest: Bilateral bronchial breath sounds with occasional rhonchi right more than left CVS: S1-S2 irregularly irregular, no murmurs, no tachycardia, no gallops, no rubs Abdomen: Soft, nontender, no organomegaly, bowel sounds present Neuro: No focal deficits, no facial deformity, AO x3, power 5/5 in all limbs Neuro: OTHER: Left-sided hemiplegia. Left-sided facial droop. Dysarthria. Aphonia. Sensation present on the left. Unable to tell if sensory neglect on exam. Urinary Catheter Management: Hall: Cath Placed During This Visit: yes Reason for Continuing Indwelling Catheter: Accurate Measurement of Urinary Output in Critically Ill Patients Urinary Catheter Date of Insertion: 04/03/23 Urinary Catheter Time of Insertion: 17:05 Discharge Data Studies Completed and Pending Completed Studies During Hospitalization Category Date Time Status CT angio headneck* 77062/03883 Stat Cat Scan 04/03/23 14:[address] head wo con* [id number] Stat Cat Scan 04/03/23 13:15 Completed CXRP [XR chest 1V portable [id number]] Routine Exams 04/05/23 12:25 Completed CXRP [XR chest 1V portable [id number]] Stat Exams 04/04/23 04:54 Completed CXRP [XR chest 1V portable [id number]] Stat Exams 04/04/23 05:50 Completed XR chest 1V portable [id number] Stat Exams 04/03/23 13:15 Completed XR chest 1V portable [id number] Stat Exams 04/04/23 06:39 Completed XR elbow LT 2V [id number] Stat Exams 04/03/23 13:56 Completed XR pelvis 1-2V* [id number] Stat Exams 04/03/23 13:15 Completed Pending at discharge Category Date Time Status CA echo doppler complete Routine Exams 04/03/23 20:58 Stop Req Sputum Culture and Gram Stain Routine Lab 04/04/23 08:45 Uncollected Radiology Impressions Head/Neck CTA 04/03/23 14:42 IMPRESSION: There is occlusion of one of the M2 branches of the right MCA. IMPRESSION: 1. 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 2. Mild stenosis at the carotid bulbs and origins of the internal carotid arteries. No severe stenosis or occlusion. 3. Ground-glass pulmonary micro nodules noted in both lung apices suggestive of a small airway infectious or inflammatory process. REFERENCES: NASCET CRITERIA. The degree of stenosis in the cervical segment of the internal carotid artery is based on NASCET criteria. Normal is no stenosis. Mild is less than 50% stenosis. Moderate is 50-69% stenosis. Severe is 70% to 99% stenosis. Total occlusion is no detectable patent lumen. ADDENDUM: 04/03/231914 THIS REPORT CONTAINS FINDINGS THAT MAY BE CRITICAL TO PATIENT CARE. The findings were verbally communicated via telephone conference with JOEL MENDOSA at 7:14 PM CDT on 04/03/2023. The findings were acknowledged and understood. Laboratory Results WBC 8.46 10^3/uL (3.29-11.43) 04/11/23 04:20 RBC 3.79 10^6/uL (3.85-5.65) L 04/11/23 04:20 Hgb 11.60 g/dL (11.27-16.99) 04/11/23 04:20 Hct 34.9 % (36-47) L 04/11/23 04:20 MCV 92.1 fl (85-98) 04/11/23 04:20 MCH 30.6 pg (27-33) 04/11/23 04:20 MCHC 33.2 g/dL (30-55) 04/11/23 04:20 RDW 13.7 % (12.1-15.1) 04/11/23 04:20 Plt Count 227 10^3/cmm (157-399) 04/11/23 04:20 MPV 11.8 fL (7.4-10.4) H 04/11/23 04:20 Neut % (Auto) 62.0 % 04/11/23 04:20 Lymph % (Auto) 21.2 % 04/11/23 04:20 Charlton % (Auto) 12.6 % 04/11/23 04:20 Eos % (Auto) 2.5 % 04/11/23 04:20 Baso % (Auto) 0.5 % 04/11/23 04:20 Neut # (Auto) 5.25 10^3/uL (1.8-7.7) 04/11/23 04:20 Lymph # (Auto) 1.8 10^3/uL (0.8-4.8) 04/11/23 04:20 Charlton # (Auto) 1.1 10^3/uL (0.2-0.9) H 04/11/23 04:20 Eos # (Auto) 0.2 10^3/uL (0.0-0.8) 04/11/23 04:20 Baso # (Auto) 0.0 10^3/uL (0.0-0.1) 04/11/23 04:20 Nucleated RBC % (auto) 0 % 04/11/23 04:20 Nucleated RBCs # 0.0 /100WBC 04/11/23 04:20 PT 14.40 SECONDS (12.1-14.9) 04/03/23 13:32 INR 1.08 (0.8-1.2) 04/03/23 13:32 APTT 66.0 SECONDS (23.9-36.7) H 04/10/23 15:53 Specimen Type Arterial 04/05/23 08:33 Sample Site Radial, left 04/05/23 08:33 ABG pH 7.18 (7.35-7.45) L* 04/05/23 08:33 ABG pCO2 18.2 mmHg (35-45) L* 04/05/23 08:33 ABG pO2 74.3 mmHg (80.0-100.0) L 04/05/23 08:33 ABG HCO3 6.7 mmol/L (22-26) L 04/05/23 08:33 ABG O2 Saturation 95.6 04/05/23 08:33 ABG Base Excess -19.5 mmol/L (-2.0-2.0) L 04/05/23 08:33 Moi Test Pos 04/05/23 08:33 A-a O2 Gradient 6.7 mmHg (5-10) 04/05/23 08:33 Hematocrit 44.6 % (37-47) 04/05/23 08:33 Hgb O2 Saturation 93.9 % (95-100) L 04/05/23 08:33 Carboxyhemoglobin 1.4 %THgb (0.4-20.1) 04/05/23 08:33 Methemoglobin 0.4 % (0.4-1.5) 04/05/23 08:33 Total Hemoglobin 14.5 g/dL (12-16) 04/05/23 08:33 Sodium 141.0 mmol/L (131-143) 04/05/23 08:33 Potassium 5.3 mmol/L (3.5-5.0) H 04/05/23 08:33 Glucose 166.0 mg/dL (70-115) H 04/05/23 08:33 Ionized Calcium 1.3 mmol/L (1.1-1.4) 04/05/23 08:33 O2 Delivery Device Room air 04/05/23 08:33 FiO2 21.0 % 04/05/23 08:33 Sensitizer ID Cak 04/05/23 08:33 Sodium 141 mmol/L (136-145) 04/11/23 04:20 Potassium 3.3 mmol/L (3.5-5.1) L 04/11/23 04:20 Chloride 106 mmol/L (98-107) 04/11/23 04:20 Carbon Dioxide 27 mmol/L (22-29) 04/11/23 04:20 Anion Gap 11.3 (5-19) 04/11/23 04:20 BUN 6 mg/dL (8-23) L 04/11/23 04:20 Creatinine 0.8 mg/dL (0.5-0.9) 04/11/23 04:20 GFR Calculation Not Reportable 04/11/23 04:20 Glucose 121 mg/dL (65-115) H 04/11/23 04:20 POC Glucose 134 mg/dL (70-110) H 04/11/23 11:21 Estimat Average Glucose 166 04/04/23 06:16 Hemoglobin A1c 7.4 % (4.0-6.0) H 04/04/23 06:16 Calculated Osmolality 291 mOsm/kg (285-295) 04/11/23 04:20 Lactate 1.0 mmol/L (0.5-2.2) 04/05/23 08:38 Calcium 8.3 mg/dL (8.5-10.5) L 04/11/23 04:20 Phosphorus 3.4 mg/dL (2.5-4.5) 04/11/23 04:20 Magnesium 1.8 mg/dL (1.7-2.3) 04/11/23 04:20 Total Bilirubin 0.7 mg/dL (0.15-1.2) 04/11/23 04:20 AST 14 U/L (0-32) 04/11/23 04:20 ALT 11 U/L (0-33) 04/11/23 04:20 Alkaline Phosphatase 54 U/L (35-105) 04/11/23 04:20 Total Protein 5.4 g/dL (6.6-8.7) L 04/11/23 04:20 Albumin 2.7 g/dL (3.5-5.2) L 04/11/23 04:20 Globulin 2.7 g/dL (1.3-4.6) 04/11/23 04:20 Procalcitonin 0.52 ng/mL (0-0.5) H 04/09/23 04:13 Urine Color Colorless (Yellow) 04/11/23 00:25 Urine Appearance Clear (CLEAR) 04/11/23 00:25 Urine pH 6 (5-7) 04/11/23 00:25 Ur Specific Opp 1.010 (1.005-1.030) 04/11/23 00:25 Urine Protein Neg (Negative) 04/11/23 00:25 Urine Glucose (UA) Norm (Normal) 04/11/23 00:25 Urine Ketones Negative (Negative) 04/11/23 00:25 Urine Blood Neg (Negative) 04/11/23 00:25 Urine Nitrate Negative (Negative) 04/11/23 00:25 Urine Bilirubin Neg (Negative) 04/11/23 00:25 Urine Urobilinogen Neg mg/dL (Negative) 04/11/23 00:25 Ur Leukocyte Esterase Negative (Negative) 04/11/23 00:25 Urine RBC None /hpf (0-2) 04/03/23 17:04 Urine WBC 0-4 /hpf (0-5) H 04/03/23 17:04 Ur Squamous Epith Cells None /hpf (0-5) 04/03/23 17:04 Amorphous Sediment Not Reportable 04/03/23 17:04 Urine Bacteria Trace /hpf (NONE) 04/03/23 17:04 Urine Yeast 3+ /hpf H 04/03/23 17:04 Nasal Influ A H1 2008 PCR Not detected (NOT DETECT) 04/10/23 18:45 Gastric Occult Blood Positive (Negative) H 04/04/23 05:20 Vancomycin Trough 9.1 ug/mL (10-15) L 04/09/23 14:41 Serum Ketones Positive (Negative) H 04/05/23 06:20 Adenovirus (PCR) Not detected (NOT DETECT) 04/10/23 18:45 C. pneumoniae DNA (PCR) Not detected (NOT DETECT) 04/10/23 18:45 Coronavirus 229E (PCR) Not detected (NOT DETECT) 04/10/23 18:45 Human Metapneumovir PCR Not detected (NOT DETECT) 04/10/23 18:45 Influenza A (H1) PCR Not detected (NOT DETECT) 04/10/23 18:45 Influenza A (H3) PCR Not detected (NOT DETECT) 04/10/23 18:45 Influenza Type A (PCR) Not detected (NOT DETECT) 04/10/23 18:45 Influenza Type B (PCR) Not detected (NOT DETECT) 04/10/23 18:45 M. pneumoniae (PCR) Not detected (NOT DETECT) 04/10/23 18:45 Parainfluenza 1 (PCR) Not detected (NOT DETECT) 04/10/23 18:45 Parainfluenza 2 (PCR) Not detected (NOT DETECT) 04/10/23 18:45 Parainfluenza 3 (PCR) Not detected (NOT DETECT) 04/10/23 18:45 Parainfluenza 4 (PCR) Not detected (NOT DETECT) 04/10/23 18:45 RSV Type A (PCR) Not detected (NOT DETECT) 04/10/23 18:45 RSV Type B (PCR) Not detected (NOT DETECT) 04/10/23 18:45 Entero/Rhino (PCR) Not detected (NOT DETECT) 04/10/23 18:45 SARS-CoV-2 (PCR) Not detected (NOT DETECT) 04/10/23 18:45 MRSA (PCR) Not detected (NOT DETECTED) 04/05/23 11:06 Vitals Last Vital Signs Temp 99.2 F 04/11/23 11:42 Pulse 77 04/11/23 11:42 Resp 20 H 04/11/23 11:42 BP 137/81 04/11/23 11:42 Pulse Ox 93 04/11/23 11:42 O2 Del Method Room Air 04/11/23 11:42 O2 Flow Rate 6 04/07/23 09:45 Discharge Plan Discharge Patient Disposition: Hospice - Medical Facility Condition: Stable Prescriptions: New metoprolol tartrate 50 mg Tablet 50 mg PO BID@0900,2100 Qty: 30 0RF insulin glargine [Lantus Solostar U-100 Insulin] 100 unit/mL (3 mL) insulin pen 10 unit SUBCUT DAILY Qty: 15 0RF insulin lispro [Humalog KwikPen Insulin] 100 unit/mL insulin pen See Protocol SUBCUT TID Qty: 15 0RF Protocol: Insulin Corrective High-Dose Regimen Condition: Fingerstick Blood Glucose Dose/Route: Insulin Units Condition: 141-180 mg/dl Dose/Route: 2 units/SQ Condition: 181-220 mg/dl Dose/Route: 4 units/SQ Condition: 221-260 mg/dl Dose/Route: 6 units/SQ Condition: 261-300 mg/dl Dose/Route: 8 units/SQ Condition: 301-350 mg/dl Dose/Route: 10 units/SQ Condition: 351-400 mg/dl Dose/Route: 12 units/SQ Condition: greater than 400 mg/dl Dose/Route: 14 units/SQ Rx Instructions: If Fingerstick Blood Glucose, then Insulin Units; If 141-180 mg/dl, then 2 units/SQ; If 181-220 mg/dl, then 4 units/SQ; If 221-260 mg/dl, then 6 units/SQ; If 261-300 mg/dl, then 8 units/SQ; If 301-350 mg/dl, then 10 units/SQ; If 351-400 mg/dl, then 12 units/SQ; If greater than 400 mg/dl, then 14 units/SQ atorvastatin 40 mg Tablet 40 mg PO BEDTIME Qty: 30 0RF amlodipine 10 mg Tablet 10 mg PO DAILY Qty: 30 0RF Continued citalopram [Celexa] 20 mg tablet 20 mg PO DAILY famotidine 20 mg tablet 20 mg PO BID PRN (Reason: unknown) oxybutynin chloride 15 mg tablet extended release 24hr 15 mg PO DAILY Farxiga 5 mg tablet 5 mg PO DAILY Colace 100 mg capsule 100 mg PO BID PRN (Reason: Constipation) Eliquis 5 mg tablet 5 mg PO DAILY Rx Instructions: (rx filled 05/21/22 90d/s 5mg bid) furosemide 20 mg tablet 20 mg PO DAILY PRN (Reason: Edema) Discontinued lovastatin 40 mg tablet 40 mg PO DAILY lisinopril 5 mg tablet 5 mg PO DAILY glyburide 5 mg tablet 5 mg PO DAILY metoprolol tartrate 25 mg tablet 12.5 mg PO BID Discharge Orders: Discharge Order (Routine); Ordered 04/11/23 Ordered By: Abelardo Bennett Referrals: [facility] [Outside] Roseline Salazar [Primary Care Provider] - Discharge Diet: Full LIquid Discharge Activity: Increase activity as tolerated Patient Instructions: Ischemic Stroke (DC), Opioid Safety Activity Restrictions/Additional Instructions: Full liquid diet. Hospice care. Discharge Attestations Time Spent in Discharge Care*: greater than 30 min Status at Discharge: Cognitive status at discharge: cognitively intact, Behavioral status at discharge: cooperative, Functional status at discharge: other assisted ambulation, Overall status at discharge: patient has a new baseline Quality Metrics Clinical Quality Measures [ Cerebrovascular Accident { Contraindication to Antithrombotic: None; antithrombotic prescribed; Contraindication to Anticoagulation: None; anticoagulation prescribed; Contraindication to Statin: None; Statin prescribed; Contraindication to tPA: Treatment not indicated;}] Coding Level of Care Code 39476 Total time (in minutes) for Discharge: 50 Diagnoses Acute right MCA stroke I63.511 Chronic atrial fibrillation with RVR I48.20 Diastolic heart failure I50.30 Hypertension I10 Hyperlipidemia E78.5 Goals of care, counseling/discussion Z71.89
[2023-04-11 16:59] LABS: Glucose Point of Care 271 mg/dL (70-110)
== END 2023-04-11 18:13 | disposition hospice, home (50) | DRG 64 ==
LOC: ER 20:35 → MEDSURG 20:42 → ICU 04-04 05:34 → CSU 04-08 11:59
PROVIDERS: Internal Medicine; Admitting Provider Internal Medicine; Emergency Provider Family Medicine; PCP Registered Nurse; Visit Provider Student in an Organized Health Care Education/Training Program
DX: I63.511 Cerebral infarction due to unspecified occlusion or stenosis of right middle cerebral artery (principal); E11.10 Type 2 diabetes mellitus with ketoacidosis without coma; J69.0 Pneumonitis due to inhalation of food and vomit; G81.94 Hemiplegia, unspecified affecting left nondominant side; I48.20 Chronic atrial fibrillation, unspecified; R29.810 Facial weakness; R47.1 Dysarthria and anarthria; R29.712 NIHSS score 12; I10 Essential (primary) hypertension; Z51.5 Encounter for palliative care; Z79.4 Long term (current) use of insulin; Z79.01 Long term (current) use of anticoagulants; E78.5 Hyperlipidemia, unspecified; K21.9 Gastro-esophageal reflux disease without esophagitis; F32.A Depression, unspecified; R19.5 Other fecal abnormalities; R00.0 Tachycardia, unspecified; R09.02 Hypoxemia; E87.6 Hypokalemia
CPT/HCPCS: 36415; 36416; 36573; 36592; 36600; 51702; 70450; 70496; 70498; 71045; 72170; 73070; 80048; 80051; 80053; 80202; 81001; 81003; 82009; 82271; 82330; 82805; 82962; 83036; 83605; 83735; 84100; 84145; 85018; 85025; 85610; 85730; 86403; 87449; 87486; 87581; 87633; 87635; 87641; 92507; 92523; 92526; 92610; 93005; 94640; 96372; 96376; 97110; 97162; 97167; 97530; 97535; 99285; C1751; C9113; J0131; J1644; J1815; J2405; J2543; J3370; J3475; J3480; J3490; J7030; J7050; J7120; J7799; Q9967